=== PATIENT | female | born 1995 | race Caucasian/White ===

== ENCOUNTER 2022-02-20 09:14 | Emergency (ER) | payer OTHER, SELFPAY ==
--- NOTE | ~2022-02-20 | XR_ITS ---
EXAMINATION: XR foot LT min 3V DATE: 02/20/2022 09:34 INDICATION: Left foot pain. TECHNIQUE: 4 views of left foot were obtained. COMPARISON: None. FINDINGS: Bone alignment is normal. No fracture. There is a benign bone island in first distal phalan x. Joint spaces are normal. IMPRESSION: 1. No fracture. Reviewed, dictated and finalized at location A. IMPRESSION: 1. No fracture.
--- NOTE | 2022-02-20 09:21 | ED.EXTPRO ---
HPI - Extremity Problem General Chief complaint: Extremity Injury, Lower Stated complaint: Left Foot Pain Time Seen by Provider: 02/20/22 09:40 Source: patient Mode of arrival: ambulatory Limitations: no limitations History of Present Illness HPI Narrative: 26-year-old female presents concern for left foot pain. She reports 9 days ago she was jumping in a bounce house at her daughter's birthday republican and after that she noticed pain in her foot. She reports dorsal pain at the third and fourth meta tarsals. She denies swelling, bruising, redness, warmth. She denies open skin. She reports throbbing when she is at rest, worsening pain with weightbearing. Reports she has tried using elevation and ice with some relief. She reports pain worsens when she wiggles her toes or flexes her ankle MD Complaint: extremity pain Related Data Allergies Allergy/AdvReac Type Severity Reaction Status Date / Time Penicillins Allergy Rash Verified 02/20/22 09:31 Review of Systems Review of Systems: CONSTITUTIONAL: Denies malaise, chills, sweats, or fever. SKIN: Denies rash or itching. Denies bruising, redness, warm, swelling, open skin MUSCULOSKELETAL: Reports left foot pain NEUROLOGIC: Denies numbness, weakness All systems reviewed & are unremarkable except as noted in HPI and below PMFSH Comments At time of signature, agree with nursing past medical, surgical, social and family history. There is no relevant family history pertinent to the presenting complaint Exam Narrative: GENERAL: Well-appearing, well-nourished, and in no acute distress. HEAD: Normocephalic, atraumatic. EYES: PERRLA, sclera clear, and EOMI. No nystagmus. ENT: Nares clear, turbinates pink, no rhinorrhea or epistaxis. Mucous membranes moist. TM pearly limon with sharp light reflex bilaterally; no tragal tenderness. Oropharynx without erythema or lesions. Tonsils not enlarged and without exudate. NECK: Supple. No lymphadenopathy. No jugular venous distension, thyromegaly, or carotid bruits. Carotids were easily palpable bilaterally. CHEST: No respiratory distress. Clear to auscultation. No bony deformities, no asymmetry. Speaks in full sentences. HEART: Regular rate and rhythm. No murmur heard. Normal peripheral pulses. ABDOMEN: Soft, nontender, nondistended, normal active bowel sounds, no palpable masses. EXTREMITIES: Normal range of motion. No edema. Normal strength and sensation. SKIN: Warm, dry, no visible rash. NEURO: Alert and oriented x3. No focal deficits. Cranial nerves II through XII grossly intact PSYCH: Normal mood and affect Course Course Emergency Course: Patient is aware of diagnosis, understands and agrees to treatment plan. Anticipatory guidance given. Patient agrees to follow-up as directed and is aware of reasons to seek care at the emergency department. Portions of this record may have been created with voice recognition software Level of Care: Express Care Visit Vital Signs Vital signs: Reviewed. MDM - Extremity (Nontraumatic) MDM Narrative Medical decision making narrative: Patients injury and pain is consistent with musculoskeletal etiology. No signs of neurological or vascular compromise on exam. Compartments and tissues are soft without signs of compartment syndrome. Pain is felt appropriate for further evaluation on an outpatient basis. Imaging Data My impression: Images reviewed, interpreted by radiologist, agree, see report. Radiologist's impression: EXAMINATION: XR foot LT min 3V DATE: 02/20/2022 09:34 INDICATION: Left foot pain. TECHNIQUE: 4 views of left foot were obtained. COMPARISON: None. FINDINGS: Bone alignment is normal. No fracture. There is a benign bone island in first distal phalanx. Joint spaces are normal. IMPRESSION: 1. No fracture. Critical Care Time Critical Care Time Critical Care Time: No Discharge Plan Discharge Clinical Impression: Foot sprain Qualifiers: Encounter type: initial encounter Laterality: left
[2022-02-20 09:22] VITALS: BP 121/73; PULSE 85; RESP 16; TEMP 36.7; O2SAT 100
== END 2022-02-20 10:01 | disposition home or self-care (01) ==
PROVIDERS: Emergency Provider Nurse Practitioner
DX: S93.602A Unspecified sprain of left foot, initial encounter (principal); X50.3XXA Overexertion from repetitive movements, initial encounter
CPT/HCPCS: 73630; 99213; G0463

== ENCOUNTER 2022-09-26 11:05 | Emergency (ER) | payer OTHER, SELFPAY ==
[2022-09-26 11:07] VITALS: BP 113/71; PULSE 81; RESP 16; TEMP 36.5; O2SAT 100
--- NOTE | 2022-09-26 12:41 | ED.URI ---
HPI - URI/Sore Throat General Chief Complaint: Upper Respiratory Infection Stated Complaint: sore throat chest burning Time Seen by Provider: 09/26/22 12:40 Source: patient, RN notes reviewed and old records reviewed Mode of arrival: ambulatory Limitations: no limitations History of Present Illness HPI Narrative: 26-year-old presents to [facility] with complaints of chest burning, sore throat,fevers with appetite decreased and has been sleeping a lot for the past few days. She reports that she has not had COVID vaccination or flu shot. Patient reports that she did a Home COVID test yesterday which was negative. Patient has not taken any OTC medications for her symptoms. MD elicited complaint: fever, cough, sore throat and other (fatigue) Onset (ago): day(s) (2-3) Pain scale (0-10): 7 Treatments prior to arrival: none Related Data Allergies Allergy/AdvReac Type Severity Reaction Status Date / Time Penicillins Allergy Rash Verified 09/26/22 11:39 Review of Systems Review of Systems: CONSTITUTIONAL: Reports malaise, chills, sweats, or fever. EYES: Denies visual changes, redness, or discharge. ENT: Reports rhinorrhea, congestion, sinus pain, no otalgia positive for sore throat. CARDIOVASCULAR: Denies chest pain, palpitations, or edema. RESPIRATORY: Reports cough.? Denies dyspnea, states chest burning sensation GASTROINTESTINAL: Denies abdominal pain, nausea, vomiting, diarrhea, decreased appetite SKIN: Denies rash or itching. MUSCULOSKELETAL: Denies myalgia. NEUROLOGIC: Denies headache. All systems reviewed & are unremarkable except as noted in HPI and below PMFSH Past Medical History Medical History (Updated 09/29/22 @ 12:03 by Marina Arroyo NP) No pertinent past medical history Surgical History Surgical History (Updated 09/29/22 @ 12:04 by Marina Arroyo NP) No history of previous surgery Social History Social History (Updated 09/29/22 @ 12:02 by Marina Arroyo NP) Smoking status: Never smoker Alcohol intake: current Alcohol use details: social Substance use type: does not use Gender identity (if verbalized by the patient): Female Comments At time of signature, agree with nursing past medical, surgical, social and family history. There is no relevant family history pertinent to the presenting complaint Exam Narrative: GENERAL: Well-appearing, well-nourished, and in no acute distress. HEAD: Normocephalic EYES: PERRLA, conjunctivae clear ENT: Nares clear, turbinates edematous and erythematous, clear discharge. Mucous membranes moist. TM pearly limon with dull light reflex bilaterally; no tragal tenderness. Oropharynx erythematous without lesions. Tonsils red enlarged especially right tonsil and without exudate, no drooling, no hoarseness, no trismus, uvula midline. NECK: Supple. right lymphadenopathy CHEST: Clear to auscultation, breath sounds equal. No wheezing, rhonchi, rales, or stridor. No respiratory distress, speaks in full sentences. cough SAO2 100% on room air no tachypnea, respirations even and nonlabored HEART: Regular rate and rhythm. No murmur heard. SKIN: Warm, dry, no rash. NEURO: Alert and oriented x3. PSYCH: Normal mood and affect Course Course Emergency Course: Patient is aware of diagnosis, understands and agrees to treatment plan.? Anticipatory guidance given.? Patient agrees to follow-up as directed and is aware of reasons to seek care at the emergency department. Portions of this record may have been created with voice recognition software Level of Care: Express Care Visit Vital Signs Vital signs: Vital Signs Temperature 36.5 C 09/26/22 11:07 Pulse Rate 81 09/26/22 11:07 Respiratory Rate 16 09/26/22 11:07 Blood Pressure 113/71 09/26/22 11:07 Pulse Oximetry 100 09/26/22 11:07 Oxygen Delivery Room Air 09/26/22 11:07 Temperature 36.5 C 09/26/22 11:07 Pulse Rate 81 09/26/22 11:07 Respiratory Rate
== END 2022-09-26 13:02 | disposition home or self-care (01) ==
PROVIDERS: Emergency Provider Registered Nurse
DX: J03.90 Acute tonsillitis, unspecified (principal); R05.9 Cough, unspecified
CPT/HCPCS: 36416; 86308; 87804; 99213; G0463

== ENCOUNTER 2022-11-27 11:04 | Emergency (ER) | payer OTHER, SELFPAY ==
[2022-11-27 11:10] VITALS: BP 132/69; PULSE 87; RESP 16; TEMP 36.6; O2SAT 99
--- NOTE | 2022-11-27 11:23 | ED.GENADULT ---
HPI - General Adult General Chief complaint: Dizziness Stated complaint: Dizzness/7 Weeks Source: patient and RN notes reviewed History of Present Illness HPI narrative: 27 yo F presents to urgent care with complaints of dizziness x 2-3 days. Pt states she is newly and is approximately 7 weeks along. Pt states she saw her OB this past Thursday and was seen for palpitations and heart issues. Pt had blood work ordered and obtained and has an EKG ordered for next week. Pt reports inability hearing out of her left ear yesterday. Also reports a slight NESBITT but contributes this to her normal symptoms. States she feels like the room is spinning and is constant. Denies any otalgia, fevers, chills, SOB, congestion, runny nose, dysuria, or abdominal pain. Denies any falls. . Related Data Allergies Allergy/AdvReac Type Severity Reaction Status Date / Time Penicillins Allergy Rash Verified 09/26/22 11:39 Review of Systems Review of Systems: CONSTITUTIONAL: Denies fever, chills, or sweats. EYES: Denies visual changes, redness, or discharge. ENT: Denies otalgia and sore throat CARDIOVASCULAR: Denies chest pain but reports intermittent palpitations RESPIRATORY: Denies cough or dyspnea. GASTROINTESTINAL: Denies abdominal pain, nausea, vomiting, or diarrhea. GENITOURINARY: Denies dysuria or hematuria. SKIN: Denies rash or itching. MUSCULOSKELETAL: Denies back pain, joint pain, or myalgia. NEUROLOGIC: Reports headache, and dizziness. PMFSH Past Medical History Medical History (Updated 11/27/22 @ 11:44 by Rosaura Tai APRN) No pertinent past medical history Surgical History Surgical History (Updated 09/29/22 @ 12:04 by Marina Arroyo NP) No history of previous surgery Social History Social History (Updated 09/29/22 @ 12:02 by Marina Arroyo NP) Smoking status: Never smoker Alcohol intake: current Alcohol use details: social Substance use type: does not use Living arrangements: with family Gender identity (if verbalized by the patient): Female Comments At the time of my signature, I reviewed and agree with the nursing past medical, surgical, social, and family history. There is no relevant family history pertinent to the patient complaint. Exam Narrative: GENERAL: This is a well-nourished, well-developed patient, in no apparent distress. HEAD: normocephalic, atraumatic. EYES: PERRL. Sclera clear/white. Vision is grossly intact. EARS: External ears normal, auditory canals clear and without drainage, TMs normal without perforation. Hearing grossly intact. NOSE: External nose normal with no obvious nasal discharge, nares without redness, no rhinorrhea. THROAT: Mucous membranes moist, posterior pharynx clear. NECK: Neck supple, non-tender without lymphadenopathy, masses or thyromegaly. CARDIOVASCULAR: Regular rate and rhythm without murmurs, gallops, or rubs. RESPIRATORY: Clear to auscultation. Breath sounds equal bilaterally. No wheezes, rales, or rhonchi. GASTROINTESTINAL: Abdomen soft, non-tender, nondistended. Bowel sounds are active. No hepato-splenomegaly, or palpable masses. No guarding. SKIN: warm, intact with no suspicious lesions or rash, good texture and turgor. NEURO: awake, alert, and oriented to person, place and time. There were no obvious focal neurologic abnormalities. Course Course Level of Care: Express Care Visit Vital Signs Vital signs: Vital Signs Temperature 97.9 F 11/27/22 11:10 Pulse Rate 87 11/27/22 11:10 Respiratory Rate 16 11/27/22 11:10 Blood Pressure 132/69 11/27/22 11:10 Pulse Oximetry 99 11/27/22 11:10 Oxygen Delivery Room Air 11/27/22 11:10 Temperature 97.9 F 11/27/22 11:10 Pulse Rate 87 11/27/22 11:10 Respiratory Rate 16 11/27/22 11:10 Blood Pressure 132/69 11/27/22 11:10 Pulse Oximetry 99 11/27/22 11:10 Oxygen Delivery Room Air 11/27/22 11:10 Reviewed. Medical Decision Making Kaela
== END 2022-11-27 11:57 | disposition home or self-care (01) ==
PROVIDERS: Emergency Provider Nurse Practitioner Family
DX: O99.891 Other specified diseases and conditions complicating pregnancy (principal); R42 Dizziness and giddiness; O23.41 Unspecified infection of urinary tract in pregnancy, first trimester; N39.0 Urinary tract infection, site not specified; Z3A.01 Less than 8 weeks gestation of pregnancy
CPT/HCPCS: 81003; 87086; 99213; G0463

== ENCOUNTER 2023-03-18 16:14 | Emergency (ER) | payer OTHER, SELFPAY ==
[2023-03-18 16:27] VITALS: BP 130/78; PULSE 91; RESP 16; TEMP 36.4; O2SAT 100
--- NOTE | 2023-03-18 17:55 | ED.URI ---
HPI - URI/Sore Throat General Chief Complaint: Upper Respiratory Infection Stated Complaint: Runny Nose Time Seen by Provider: 03/18/23 17:55 Source: patient and RN notes reviewed Mode of arrival: ambulatory Limitations: no limitations History of Present Illness HPI Narrative: 27-year-old female presented for complaint of runny nose, onset this morning. She endorses her boyfriend tested positive for COVID yesterday. She is requesting COVID testing. She denies any associated cough, shortness breath, fatigue, nausea, vomiting, fevers or chills. Has not taken anything for symptoms pain. She is currently 22 weeks gestation and endorses normal movement today. MD elicited complaint: cough Related Data Home Medications Medication Instructions Recorded Confirmed ferrous sulfate 325 mg (65 mg 325 mg DIRECTED 03/18/23 03/18/23 iron) tablet Allergies Allergy/AdvReac Type Severity Reaction Status Date / Time Penicillins Allergy Rash Verified 09/26/22 11:39 Review of Systems Review of Systems: CONSTITUTIONAL: Denies malaise, chills, sweats, fever EYES: Denies visual changes, redness, or discharge ENT: Reports rhinorrhea, denies sinus pain, otalgia, sore throat CARDIOVASCULAR: Denies chest pain, palpitations, edema RESPIRATORY: Denies dyspnea GASTROINTESTINAL: Denies abdominal pain, nausea, vomiting, diarrhea SKIN: Denies rash or itching MUSCULOSKELETAL: deniesmyalgia NEUROLOGIC: Denies headache PMFSH Past Medical History Medical History No pertinent past medical history Surgical History Surgical History No history of previous surgery Social History Social History Smoking status: Never smoker Alcohol intake: current Alcohol use details: social Substance use type: does not use Living arrangements: with family Gender identity (if verbalized by the patient): Female Exam Narrative: GENERAL: well-appearing EYES: PERRLA, conjunctivae clear ENT: Mucous membranes moist. Mild nasal congestion. TM pearly limon with dull light reflex bilaterally; no tragal tenderness. NECK: Supple. No lymphadenopathy CHEST: Clear to auscultation, breath sounds equal. No wheezing, rhonchi, rales, or stridor. No respiratory distress, speaks in full sentences. HEART: Regular rate and rhythm. No murmur heard. SKIN: Warm, dry, no rash. NEURO: Alert and oriented x3. PSYCH: Normal mood and affect Course Course Emergency Course: Patient is aware of diagnosis, understands and agrees to treatment plan. Anticipatory guidance given. Patient agrees to follow-up as directed and is aware of reasons to seek care at the emergency department. Portions of this record may have been created with voice recognition software Level of Care: Express Care Visit Vital Signs Vital signs: Vital Signs Temperature 97.6 F 03/18/23 16:27 Pulse Rate 91 03/18/23 16:27 Respiratory Rate 16 03/18/23 16:27 Blood Pressure 130/78 03/18/23 16:27 Pulse Oximetry 100 03/18/23 16:27 Oxygen Delivery Room Air 03/18/23 16:27 Temperature 97.6 F 03/18/23 16:27 Pulse Rate 91 03/18/23 16:27 Respiratory Rate 16 03/18/23 16:27 Blood Pressure 130/78 03/18/23 16:27 Pulse Oximetry 100 03/18/23 16:27 Oxygen Delivery Room Air 03/18/23 16:27 reviewed MDM - URI/Sore Throat MDM Narrative Medical decision making narrative: Result negative COVID test reviewed with patient. Discussed physical exam findings. Advised supportive measures and signs/symptoms to go to the ER. Pt is appropriate for outpt treatment and f/u. Differential Diagnosis Differential diagnosis: Likely upper respiratory infection, sinusitis and viral infection Discharge Plan Discharge Clinical Impression: Viral infection Patient Disposition: Home, Self-Ca
== END 2023-03-18 18:20 | disposition home or self-care (01) ==
PROVIDERS: Emergency Provider Nurse Practitioner Family
DX: B34.9 Viral infection, unspecified (principal); Z20.822 Contact with and (suspected) exposure to COVID-19
CPT/HCPCS: 87426; 99213; C9803; G0463

== ENCOUNTER 2023-07-14 10:24 | Emergency (ER) | payer OTHER, SELFPAY ==
--- NOTE | 2023-07-14 10:25 | ED.DENTAL ---
HPI - Dental/Oral General Chief complaint: Dental/Oral Stated complaint: tooth pain/swelling Source: patient and RN notes reviewed Mode of arrival: ambulatory Limitations: no limitations History of Present Illness HPI Narrative: Patient is a 27 year female who presents to the [facility] with complaints of left upper dental pain starting last night. Patient states that she broke a tooth years ago but has never gotten it pulled. Patient states that she is having constant aching and throbbing to the left upper tooth. There is no notable facial swelling. No notable abscess. She denies difficulty swallowing. She does not currently have a dentist. She denies recent fevers. Related Data Home Medications Medication Instructions Recorded Confirmed ferrous sulfate 325 mg (65 mg 325 mg DIRECTED 03/18/23 03/18/23 iron) tablet labetalol 200 mg tablet mg 07/14/23 Allergies Allergy/AdvReac Type Severity Reaction Status Date / Time Penicillins Allergy Rash Verified 09/26/22 11:39 Review of Systems Review of Systems: CONSTITUTIONAL: Denies fever, chills, or sweats. EYES: Denies visual changes, redness, or discharge. ENT: Denies otalgia and sore throat. Reports dental pain. CARDIOVASCULAR: Denies chest pain, palpitations, or edema. RESPIRATORY: Denies cough or dyspnea. GASTROINTESTINAL: Denies abdominal pain, nausea, vomiting, or diarrhea. GENITOURINARY: Denies dysuria or hematuria. SKIN: Denies rash or itching. MUSCULOSKELETAL: Denies back pain, joint pain, or myalgia. NEUROLOGIC: Denies headache, numbness, or weakness. Pertinent positives per HPI. [facility] Past Medical History Medical History No pertinent past medical history Surgical History Surgical History No history of previous surgery Social History Social History Smoking status: Never smoker Alcohol intake: current Alcohol use details: social Substance use type: does not use Living arrangements: with family Gender identity (if verbalized by the patient): Female Comments At the time of my signature, I reviewed and agree with the nursing past medical, surgical, social, and family history. There is no relevant family history pertinent to the patient complaint. Exam Narrative: GENERAL: This is a well-nourished, well-developed patient, in no apparent distress. HEAD: normocephalic, atraumatic. EYES: Sclera clear/white. Vision is grossly intact. EARS: External ears normal. Hearing grossly intact. NOSE: External nose normal with no obvious nasal discharge, nares without redness, no rhinorrhea. THROAT: Mucous membranes moist, posterior pharynx clear. MOUTH: Gingival swelling, dental tenderness, dental caries, abnormal dentition. No abscess. NECK: Neck supple, non-tender without lymphadenopathy, masses or thyromegaly. CARDIOVASCULAR: Regular rate and rhythm without murmurs, gallops, or rubs. RESPIRATORY: Clear to auscultation. Breath sounds equal bilaterally. No wheezes, rales, or rhonchi. GASTROINTESTINAL: Abdomen soft, non-tender, nondistended. Bowel sounds are active. No hepato-splenomegaly, or palpable masses. No guarding. SKIN: warm, intact with no suspicious lesions or rash, good texture and turgor. NEURO: awake, alert, and oriented to person, place and time. There were no obvious focal neurologic abnormalities. Course Course Level of Care: Express Care Visit Vital Signs Vital signs: Vital Signs Temperature 97.3 F L 07/14/23 10:33 Pulse Rate 93 07/14/23 10:33 Respiratory Rate 16 07/14/23 10:33 Blood Pressure 143/89 H 07/14/23 10:33 Pulse Oximetry 99 07/14/23 10:33 Oxygen Delivery Room Air 07/14/23 10:33 Temperature 97.3 F L 07/14/23 10:33 Pulse Rate 93 07/14/23 10:33 Respiratory Rate 16 07/14/23 10:33 Blood Pressure 143/89 H
[2023-07-14 10:33] VITALS: BP 143/89; PULSE 93; RESP 16; TEMP 36.3; O2SAT 99
== END 2023-07-14 10:41 | disposition home or self-care (01) ==
PROVIDERS: Emergency Provider Nurse Practitioner
DX: K02.9 Dental caries, unspecified (principal); I10 Essential (primary) hypertension
CPT/HCPCS: 99213; G0463

== ENCOUNTER 2023-08-23 10:27 | Emergency (ER) | payer OTHER, SELFPAY ==
[2023-08-23 10:31] VITALS: BP 144/67; PULSE 92; RESP 16; TEMP 36.3; O2SAT 99
[2023-08-23 10:40] VITALS: BP 144/67; PULSE 92; RESP 16; TEMP 36.3; O2SAT 99
--- NOTE | 2023-08-23 10:49 | ED.DENTAL ---
HPI - Dental/Oral General Chief complaint: Dental/Oral Stated complaint: Toothache/Facial Swelling Source: patient Mode of arrival: ambulatory History of Present Illness HPI Narrative: 27-year-old female presented for complaint of left facial swelling and left upper dental abscess. Onset 5 days. States she woke with left cheek swelling up to the left eye and tooth throbbing. Patient was treated for dental abscess of the same tooth about 6 weeks ago, at that time she did not complete the clindamycin as prescribed, so she took the left over tablets for the last 4 days. Reports significant improvement in the swelling. Denies pain to the tooth at this time. Endorses the tooth has been broken for many years. Taking Naprosyn as directed. Scheduled with dental school in October. Denies n/v/d/f/c. Complaint: tooth pain Related Data Home Medications Medication Instructions Recorded Confirmed hydroxyzine HCl 25 mg tablet 30 mg PO DAILY 08/23/23 08/23/23 naproxen 500 mg tablet 500 mg PO BID 08/23/23 08/23/23 Allergies Allergy/AdvReac Type Severity Reaction Status Date / Time Penicillins Allergy Rash Verified 08/23/23 10:33 Review of Systems Review of Systems: CONSTITUTIONAL: Denies body aches, fever, chills ENT: Denies rhinorrhea, congestion, sore throat, or otalgia. Reports dental pain CARDIOVASCULAR: Denies chest pain, palpitations RESPIRATORY: Denies cough or dyspnea. SKIN: Denies rash, itching, or wounds. MUSCULOSKELETAL: Denies myalgia. NEUROLOGIC: Denies headache, numbness, tingling, or weakness. PMFSH Past Medical History Medical History No pertinent past medical history Surgical History Surgical History No history of previous surgery Social History Social History Smoking status: Never smoker Alcohol intake: current Alcohol use details: social Substance use type: does not use Living arrangements: with family Gender identity (if verbalized by the patient): Female Comments At time of signature, I have reviewed and agree with nursing past medical, surgical, social and family history unless otherwise noted. Please see nursing chart for further information. There is no relevant family history pertinent to the presenting complaint Exam Narrative: GENERAL: Appears in mild pain; no acute distress. HEAD: Normocephalic, atraumatic. EYES: EOMI. No redness or drainage. Conjunctivae normal. ENT: Dental pain location of #11, tooth is broken, Moderate lateral gum swelling with abscess draining. Medial aspect of tooth with area of erythema. Minimal tenderness. Mild Left face swelling over the abscess site, no erythema. Mucous membranes pink and moist. TMs normal bilaterally. Throat normal. Uvula midline. No trismus. No soft palate swelling. NECK: Normal AROM. No lymphadenopathy. CHEST: No respiratory distress. Clear to auscultation. HEART: Regular rate and rhythm. No murmur appreciated. SKIN: Warm, dry, no rash. Normal skin turgor. NEURO: No focal deficits. Alert and oriented x3. Gait steady. Course Course Emergency Course: Patient is aware of diagnosis, understands and agrees to treatment plan. Anticipatory guidance given. Patient agrees to follow-up as directed and is aware of reasons to seek care at the emergency department. Portions of this record may have been created with voice recognition software Level of Care: Express Care Visit Vital Signs Vital signs: Vital Signs Temperature 97.3 F L 08/23/23 10:31 Pulse Rate 92 08/23/23 10:31 Respiratory Rate 16 08/23/23 10:31 Blood Pressure 144/67 H 08/23/23 10:31 Pulse Oximetry 99 08/23/23 10:31 Oxygen Delivery Room Air 08/23/23 10:31 Temperature 97.3 F L 08/23/23 10:40 Pulse Rate 92 08/23/23 10:40 Respiratory Rate 16 08/23/23 10:40 B
== END 2023-08-23 11:10 | disposition home or self-care (01) ==
PROVIDERS: Emergency Provider Nurse Practitioner Family
DX: K04.7 Periapical abscess without sinus (principal)
CPT/HCPCS: 99213; G0463

== ENCOUNTER 2024-04-07 13:48 | Emergency (ER) | payer OTHER, SELFPAY ==
[2024-04-07 13:55] VITALS: BP 167/71; PULSE 86; RESP 20; TEMP 36.8; O2SAT 100
--- NOTE | 2024-04-07 14:38 | ECG_ITS ---
Test Date: 2024-04-07 14:42:48 Measurements Intervals [place] Rate: 90 P: 26 [place]: 127 QRS: 29 QRSD: 94 T: 17 QT: 358 QTc: 438 Interpretive Statements SINUS RHYTHM WITH SINUS ARRHYTHMIA WITHIN NORMAL LIMITS No previous ECG available for comparison Electronically Signed On 04-08-2024 07:00:00 CDT by Michel Ennis M.D.
--- NOTE | 2024-04-07 14:54 | ED.GENADULT ---
HPI - General Adult General Chief complaint: Shortness of Breath/Dyspnea Stated complaint: Shortness of Breath/Anxiety Time Seen by Provider: 04/07/24 14:20 Source: patient, RN notes reviewed and old records reviewed Mode of arrival: ambulatory Limitations: no limitations History of Present Illness HPI narrative: 28 year old female who presents to express care with complaints of starting yesterday episodes of anxiety with shortness of breath. Patient reports that she was on her way to work yesterday and she became very anxious was short of breath and felt like her head was being squeezed. She states that turned around and went home and took hydroxyzine and went to bed. Today she was getting ready for work and started having severe anxiety and felt shortness of breath again so came to clinic, states she feels like she is having palpitations in her chest also. Patient reports that her OB doctor had ordered her the buspirone and hydroxyzine for her anxiety after having her last baby. Patient reports that she had problems with eclampsia was at [facility] and has had problems with anxiety since. She states that she is suppose to see counselor. Patient admits that she has not been taking any buspirone and had not take any hydroxyzine for 2 weeks prior to yesterday incident. Patient does not like the way medication makes her feel she reports. MD complaint: anxiety, shortness of breath and palpitation Onset (ago): day(s) (increased symptoms for past 2 days) Severity: moderate Treatments prior to arrival: none and other (took hydroxyzine last evening) Related Data Home Medications Medication Instructions Recorded Confirmed hydroxyzine pamoate 25 mg capsule 25 mg PO TID PRN Anxiety 04/07/24 04/07/24 Allergies Allergy/AdvReac Type Severity Reaction Status Date / Time Penicillins Allergy Rash Verified 08/23/23 10:33 Review of Systems Review of Systems: CONSTITUTIONAL: Denies fever, chills, or sweats. EYES: Denies visual changes, redness, or discharge. ENT: Denies rhinorrhea, congestion, sore throat, or otalgia. CARDIOVASCULAR: Denies chest pain, positive for palpitations, or edema. RESPIRATORY: Denies cough,reports she feels short of breath GASTROINTESTINAL: Denies abdominal pain, nausea, vomiting, or diarrhea. GENITOURINARY: Denies dysuria or hematuria. SKIN: Denies rash or itching. MUSCULOSKELETAL: Denies back pain, joint pain, or myalgia. NEUROLOGIC: Denies headache, numbness, or weakness. PSYCHIATRIC: Reports acute anxiety episodes. All systems reviewed & are unremarkable except as noted in HPI and below PMFSH Past Medical History Medical History Anxiety No pertinent past medical history Preeclampsia Surgical History Surgical History No history of previous surgery Family History Family History (Updated 04/08/24 @ 11:04 by Marina Arroyo NP) Mother Heart disease Social History Social History Smoking status: Never smoker Alcohol intake: current Alcohol use details: social Substance use type: does not use Living arrangements: with family Gender identity (if verbalized by the patient): Female Comments At time of signature, agree with nursing past medical, surgical, social and family history. There is no relevant family history pertinent to the presenting complaint Exam Narrative: GENERAL: Well-appearing, well-nourished, anxious HEAD: Normocephalic, atraumatic. EYES: PERRLA and EOMI. ENT: Nares clear, no rhinorrhea or epistaxis. Mucous membranes moist. NECK: Supple.no lymphadenopathy CHEST: Clear to auscultation. No respiratory distress, patient reports feeling of dyspnea at rest with SAO2 100% on room air, no tachypnea HEART: Regular rate and rhythm. No murmur heard. Normal peripheral pulses.reports feeling of palpitations ABDOM
[2024-04-07 15:50] VITALS: BP 144/84
== END 2024-04-07 15:50 | disposition short-term general hospital (02) ==
PROVIDERS: Emergency Provider Registered Nurse
DX: F41.9 Anxiety disorder, unspecified (principal); R06.00 Dyspnea, unspecified; R00.2 Palpitations
CPT/HCPCS: 93005; 99213; G0463

== ENCOUNTER 2024-10-28 16:42 | Emergency (ER) | payer OTHER, SELFPAY ==
[2024-10-28 16:49] VITALS: BP 144/82; PULSE 73; RESP 16; TEMP 36.4; O2SAT 100
--- NOTE | 2024-10-28 16:49 | ED.FEMALEGU ---
HPI - Female Genitourinary General Chief complaint: Urogenital-Female Stated complaint: poss uti Source: patient and RN notes reviewed Mode of arrival: ambulatory Limitations: no limitations History of Present Illness HPI Narrative: 29-year-old female presented for complaint urinary urgency and suprapubic pressure radiating to the low back. Onset 3 days. Feels she is not emptying her bladder. LMP 5 days ago. Denies concern for std or . denies dysuria hematuria, nausea, vomiting, abdominal pain, flank pain, constipation, diarrhea, fevers or chills. Related Data Allergies Allergy/AdvReac Type Severity Reaction Status Date / Time Penicillins Allergy Rash Verified 10/28/24 16:45 Review of Systems Review of Systems: CONSTITUTIONAL: Denies body aches, fever, chills, or sweats. CARDIOVASCULAR: Denies chest pain, palpitations, or edema. RESPIRATORY: Denies cough or dyspnea. GASTROINTESTINAL: Denies abdominal pain, nausea, vomiting, or diarrhea. GENITOURINARY: Reports frequency, urgency, denies dysuria, hematuria, flank pain SKIN: Denies rash MUSCULOSKELETAL: Denies back pain or myalgia. [facility] Past Medical History Medical History Anxiety Preeclampsia No pertinent past medical history Surgical History Surgical History No history of previous surgery Family History Family History Mother Heart disease Social History Social History Smoking status: Never smoker Alcohol intake: current Alcohol use details: social Substance use type: does not use Living arrangements: with family Gender identity (if verbalized by the patient): Female Comments At time of signature, I have reviewed and agree with nursing past medical, surgical, social and family history unless otherwise noted. Please see nursing chart for further information. There is no relevant family history pertinent to the presenting complaint Exam Narrative: GENERAL: Well-appearing ENT: Mucous membranes pink and moist. NECK: Normal AROM. Supple. CHEST: No respiratory distress. Clear to auscultation. HEART: Regular rate and rhythm. ABDOMEN: Soft, nontender, nondistended, normal active bowel sounds. No CVA tenderness SKIN: Warm, dry, no rash. NEURO: No focal deficits. Alert and oriented x3. Gait steady. PSYCH: Normal affect. Course Course Emergency Course: Patient is aware of diagnosis, understands and agrees to treatment plan. Anticipatory guidance given. Patient agrees to follow-up as directed and is aware of reasons to seek care at the emergency department. Portions of this record may have been created with voice recognition software Level of Care: Express Care Visit Vital Signs Vital signs: Vital Signs Temperature 97.5 F L 10/28/24 16:49 Pulse Rate 73 10/28/24 16:49 Respiratory Rate 16 10/28/24 16:49 Blood Pressure 144/82 H 10/28/24 16:49 Pulse Oximetry 100 10/28/24 16:49 Oxygen Delivery Room Air 10/28/24 16:49 Temperature 97.5 F L 10/28/24 16:49 Pulse Rate 73 10/28/24 16:49 Respiratory Rate 16 10/28/24 16:49 Blood Pressure 144/82 H 10/28/24 16:49 Pulse Oximetry 100 10/28/24 16:49 Oxygen Delivery Room Air 10/28/24 16:49 Reviewed MDM - Female Genitourinary MDM Narrative Medical decision making narrative: Discussed physical exam findings. Advised supportive measures and signs/symptoms to go to the ER. Pt is appropriate for outpt treatment and f/u. Differential Diagnosis Differential diagnosis: Likely urinary tract infection, bacterial vaginosis and cystitis Discharge Plan Discharge Clinical Impression: Urinary tract infection Patient Disposition: Home, Self-Care Condition: Stable Instructions: Antibiotic Form, Urinary Tract Infection in Women (ED) Additional Instructions: Take the antibiotic as prescribed The urine will be sent of for a culture to identify what type of bacteria is causing your infection. If the culture shows that the antibiotic will not get rid of your infection, you will be notified and a new antibiotic will be called in for you. Increase water intake you will need to follow up with your PCP, call to schedule an appointment. Go to the ER for any worsening symptoms or concerns Patient Language: [place]er Prescriptions: New nitrofurantoin monohyd/m-cryst [Macrobid] 100 mg capsule 100 mg PO Q12H 5 Days Qty: 10 0RF Rx Instructions: must administer with a meal/food Follow-up/Referrals: PHYSICIAN,MAGNETIC TAPE COMPOSER OPERATOR [Primary Care Provider] - Time of Disposition: 16:57
[2024-10-28 17:04] LABS: EDUAAPPEAR Clear; EDUABILI Negative (Negative); EDUABLOOD 1+ (Negative); EDUACOLOR1 Yellow; EDUAGLUCOSE Negative (Negative); EDUAKETONE Trace (Negative); EDUALEUKO 1+ (Negative); EDUANITRATE Negative (Negative); EDUAPROTEIN 1+ (Negative); EDUASPGRAVITY 1.025
== END 2024-10-28 17:00 | disposition home or self-care (01) ==
PROVIDERS: Emergency Provider Nurse Practitioner Family
DX: N39.0 Urinary tract infection, site not specified (principal)
CPT/HCPCS: 81003; 87086; 87186; 99213; G0463

== ENCOUNTER 2025-03-05 16:16 | Emergency (ER) | payer OTHER, SELFPAY ==
--- OUTSIDE RECORDS SUMMARY | 2025-03-05 16:19 | XMS_ITS | Clinical Summary ---
Author Organization [facility] Address [address] [place] [address] Phone Care Team Providers Care F[employer] Pen Nibs Inspector Name Role Phone Provider, None Primary Care Provider Unavailabl e Allergies Active Allergy Reactions Criticality Noted Date Comments Penicillins Rash 11/21/2017 Medications metoclopramide (REGLAN) 10 MG Tablet Take 1 Tablet by mouth 4 times daily as needed for Nausea - 1st line. 10 Tablet 12/16/2022 Active naproxen (NAPROSYN) 500 MG Tablet Take 1 Tablet by mouth 2 times daily (with meals). 30 Tablet 07/16/2023 Active traMADol (ULTRAM) 50 MG TabletIndicatio ns:Pain, dental Take 1-2 Tablets by mouth every 6 hours as needed for Moderate or more severe pain. 20 Tablet 07/16/2023 Active meclizine (ANTIVERT) 25 MG Tablet Take 1 Tablet by mouth 3 times daily as needed (Vertigo). 30 Tablet 07/13/2024 Active Active Problems Problem Noted Date Diagnosed Date Anemia during in third trimester 05/25 Family History Medical History Relation Name Comments Diabetes Father Diabetes Mother Heart Disease Mother Hypertension Mother Relation Name Status Comments Father Alive Mother Alive Social History Tobacco Use Types Packs/Day Years Used Date Smoking Tobacco: Never Smokeless Tobacco: Never Tobacco Cessation:Counseling Given: Not Answered Alcohol Use Standard Drinks/Week Comments No 0 (1 standard drink = 0.6 oz pur e alcohol) Comments Unknown Sex and Gender Information Value Date Recorded Sex Assigned at Not on file Legal Sex Female 9:28 PM CDT Gender Identity Not on file Sexual Orientation Not on file Last Filed Vital Signs Vital Sign Reading Time Taken Comments Blood Pressure 144/81 07/13/2024 9:00 PM CDT Pulse 69 07/13/2024 9:15 PM CDT Temperature 36.7 C (98.1 F) 07/13/2024 4:36 PM CDT Respiratory Rate 20 07/13/2024 9:15 PM CDT Oxygen Saturation 99% 07/13/2024 9:15 PM CDT Inhaled Oxygen Concentration - - Weight 111.2 kg (245 lb 2.4 oz) 07/13/2024 4:36 PM CDT Height 170.2 cm (5' 7 ) 07/13/2024 4:36 PM CDT Body Mass Index 38.4 07/13/2024 4:36 PM CDT Plan of Treatment Health Maintenance Due Date Last Done Comments Hepatitis C Virus (HCV) Screening 1996 Pap Smear 2017 Influenza Immunization (#1) 2024 09/15/2019 SARS-COV-2 Immunization ( season) 2024 Respiratory Syncytial Virus (RSV) Immunization (Adult) (1 - 1-dose 75+ series) 2071 Hepatitis B Immunization Completed 997, 1996, 1996 Human Papillomavirus (HPV) Immunization Discontinued 12/22/2012, 06/02/2012 Meningococcal Immunization (ACWY) Completed 12/22/2012, 06/02/2012 DTaP/Tdap/Td Immunization Discontinued 2022, 01/31/2020, 06/04/2017, Additional history exists TdaP Immunization Completed 05/11/2023, , 06/04/2017, Additional history exists Pneumococcal Immunization Combined Aged Out No longer eligible based on patient's age to complete this topic Rotavirus Immunization Aged Out No lo nger eligible based on patient's age to complete this topic Insurance [place] Care Teams F[employer] Pen Nibs Inspector Relationship Specialty Start Date End Date Provider, None [place] PCP - General 11/21/17
--- OUTSIDE RECORDS SUMMARY | 2025-03-05 16:20 | XMS_ITS | Data Portability ---
Author Organization [facility] Address [address] [facility] [place] [address] Care Team Providers Care Reading Professor Name Role Phone BRUCE GARNETT Orthopedic Mechanic Unavailable ALANNAH KAUR Primary Care Provider Assessment Encounter Date Assessment Date Assessment LastModified by Organization Details LastModified Time 10/09/2023 10/09/2023 Pt's case was discussed w/resident. Documentation was reviewed, and I agree w/resident's note. Dr. Torrez [email or web address] Not available 10/13/2023 10:20:54 08/16/2024 08/16/2024 This visit was performed by Phone only. The patient's name, , and home address were confirmed prior to initiation of phone encounter. Not available 08/16/2024 09:47:43 Plan of Treatment Reminders Order Date Submit Date Provider Last Modified By Organization Details Last Modified Time Details Appointments None recorde d. Lab iron + total iron-bi nding capacit y (TIBC), serum 2022 023 [facility], [address], [place], [address], 3 11:11:54 ferriti n, serum or plasma 2022 023 [facility], [address], [place], [address], 3 11:11:54 pregnan cy test, urine 2022 023 [facility] In-Office Order, Internal Use Only DO Not Attach Compendium DO Not Attach Compendium, Do Not Delete/merge, [id number] 3 16:08:48 Referral clinica l therapi st referra l 2023 024 león Nelson [facility], [address] [place] [address], Mirian B, [address], [place], [address], 4 17:31:46 Procedures None recorde d. Surgeries None recorde d. Imaging None recorde d. Medication Orders buspiro ne 7.[address] [facility] ([place] [place]Pharmacy #[id number], [address] [place], [address], 4 16:57:59 sertral ine 50 mg tablet 2023 024 [facility]/Pharmacy #[id number], [address] [place], [address], 4 11:51:48 hydroxy zine pamoate 25 mg capsule 2023 024 [email or web address]/Pharmacy #[id number], [address] [place], [address], 4 11:45:32 hydroxy zine HCl 25 mg tablet 2022 [id number] [address] [place], [address], 4 12:53:37 Depo-Pr overa 150 mg/mL intramu scular suspens ion 2022 023 [email or web address] Not available 12:15:49 Patient TargetsNo targets recorded. Patient Instructions Encounter Date Encounter Id Patient Instructions Last Modified By Organization Details Last Modified Time 09/14/2023 [id number] A healthy lifestyle: care instructions [email or web address] Not available 09/14/2023 16:02:28 I discussed the patient s presentation, findings, assessment and plan with the resident during or immediately after the time of service. I agree with the resident s findings, assessment, and plan as documented in the note above. Nika Moore MD. [facility] [email or web address] Not available 09/14/2023 16:03:30 10/09/2023 [id number] A healthy lifestyle: care instructions [email or web address] Not available 10/09/2023 14:44:30 03/07/2024 [id number] A healthy lifestyle: care instructions [email or web address] Not available 03/07/2024 12:58:02 anxiety disorder: care instructions [email or web address] Not available 03/07/2024 12:32:31 I was present in the office and available during the visit. I discussed the patient s presentation, findings, assessment and plan with the resident during or immediately after the time of service. I agree with the resident s findings, assessment, and plan as documented in the note above. Nika Moore MD. [facility] [email or web address] Not available 03/07/2024 12:45:41 07/18/2024 [id number] A healthy lifestyle: care instructions Not available 07/18/2024 16:57:57 I was present in the office and available during the visit. I discussed the patient s presentation, findings, assessment and plan with the resident during or immediately after the time of service. I agree with the resident s findings, assessment, and plan as documented in the note above. Nika Moore MD. [facility] Not available 07/18/2024 12:56:03 08/16/2024 [id number] A healthy lifestyle: care instructions Not available 08/16/2024 09:46:24 On the date of this encounter, I was immediately available to assist the resident/fellow in the care of the patient, and have reviewed and agree with the resident s findings and plan of care. MD Lida [email or web address] Not available 08/21/2024 20:24:25 Reason for Referral Clinical Therapist Referral for Generalized anxiety disorder Referring Physician: Viviana Hammond, Call Center Manager, Encounter Date: 03/07/2024 Results Created Date Observation Date Name Description Value Unit Range Abnormal Flag Note LastModifiedBy Organization Detail LastModifiedTime 09/14/20 23 09/14/2023 pregn lorena test, urine HCG negati ve Not Available In-Office Order Internal Use Only DO Not Attach Compendium DO Not Attach Compendium, Do Not Delete/merge, [id number] 09/14/2023 16:02:07 10/09/2010/10/2023 IRON AND TIBC iron bind.cap.(TI BC) 491 ug/dL 250-45 0 above high normal Not Available [facility] ([facility]) [address] [place], [address], 10/10/2023 11:11:54 10/09/2010/10/2023 IRON AND TIBC UIBC 448 ug/dL 131-42 5 above high normal Not Available [facility] ([facility]) [address] [place], [address], 10/10/2023 11:11:54 10/09/20 23 10/10/2023 IRON AND TIBC iron 43 ug/dL 27-159 Not Available [facility] ([facility]) [address] [place], [address], 10/10/2023 11:11:54 10/09/20 23 10/10/2023 IRON AND TIBC iron saturation 9 % 15-55 alert low Not Available [facility] ([facility]) [address] [place], [address], 10/10/2023 11:11:54 10/09/20 23 10/10/2023 NANCY TIN ferritin 7 NG/mL 15-150 below low normal Not Available [facility] ([facility]) [address] [place], [address], 10/10/2023 11:11:54 Result Notes None recorded. Problems Name Problem SNOMED Code Status Onset Date Resolution Date Notes Provider Name and Address Organization Details Recorded Time Pregnanc y 86948793 Completed 201811/24/2022 GLORIA [place], [place] - [facility] 3 14:51:28 Administ ration of influenz a vaccine Completed 2018 BEA [place], [place] [facility] 3 10:57:00 Overweig ht 751877690 Completed Total weight gain of 15-25 lbs mery guidry BEA [place], [place] [facility] 3 10:57:00 Herpes simplex 81671741 Completed Prophyla xis at 36 weeks. 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 [place] [facility] 3 14:51:23 Palpitat ions 92429322 Active 2022 BRUCE GARNETT MD Attn: Tiffanie blank,[address] [facility], [place], [address] [facility] 3 11:56:38 Vitamin D deficien cy 28258887 Active 2022 BRUCE GARNETT MD Attn: Tiffanie blank,[address] [place], [address] [facility] 3 16:53:09 Rubella non-immu ne 338801544 Active 2022 Selma Romeo LPN [place] [facility] 3 14:51:23 Anemia of pregnanc y 88375316 Active 2022 Sel[place] Rome[place] LPN [place] [facility] 3 14:51:23 Pregnanc y 73862029 Completed 202206/09/2023 Selma Ousmane, [employer] [facility] 3 14:51:28 Low back pain in pregnanc y 04407711432 06 Completed 202205/26/2023 BRUCE GARNETT MD Attn: Tiffanie blank,[address] [facility], [place], [address] [facility] 3 16:53:26 Low back pain in pregnanc y 27883832686 06 Completed 2022 Selma Romeo [place] [facility] 3 14:51:23 Chlamydi a trachoma tis infectio n in pregnanc y 03738567139 Completed 2022 Selma Romeo [place] [facility] 3 14:51:23 Chlamydi a trachoma tis infectio n in pregnanc y 59077356478 Active 2022 Selma Romeo [place] [facility] 3 14:51:23 Anemia of pregnanc y 95696614 Completed 2022 Selma Romeo [place] [facility] 3 14:51:23 Past pregnanc y history of pre-ecla mpsia 36005818861 9100 Completed 2022 Selma Romeo [place] [facility] 3 14:51:23 Glucose toleranc e test during pregnanc y - baby not yet delivere d outside referenc e range 025844161 Completed 2022 1h abnormal , 3h wnl Selma Romeo [employer] [facility] 3 14:51:24 Glucose toleranc e test during pregnanc y - baby not yet delivere d outside referenc e range 896830670 Active 2022 1h abnormal , 3h wnl Selma Romeo [place] [facility] 3 14:51:24 Rubella non-immu ne 524622571 Completed 2022 Selma Romeo [place] [facility] 3 14:51:23 Maternal obesity complica ting pregnanc y, childbir th and the [place] , antepart 38399572320 7 Completed 2022 Selma Romeo, [place] [facility] 3 14:51:24 Maternal obesity complica ting pregnanc y, childbir th and the [place] , [facility] 26778873670 7 Active 2022 Selma Ousmane, [place] [facility] 3 14:51:24 Pregnanc y-induce d hyperten kaci 09278292 Active 2022 Selma Ousmane, [place] [facility] 3 14:51:23 Pregnanc y-induce d hyperten kaci 89835302 Completed 2022 Selma Romeo, [place] [facility] 3 14:51:23 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 436456282 Active 2023 RENALDO RODRÍGUEZ DO Attn: Tiffanie blank,[address] [place], [address], [place] [facility] 4 09:46:20 Generali zed anxiety disorder 27341499 Active 2023 RENALDO RODRÍGUEZ DO Attn: Tiffanie blank,[address] [place], [address], [place] [facility] 4 09:46:16 Urinary tract infectio n in pregnanc y 126512444 Completed Laura Hassan [place] [facility] 6 14:52:22 Anemia 519254029 Completed 08/16/2024 RENALDO RODRÍGUEZ DO Attn: Tiffanie blank,[address] [place], [address], [place] [facility] 4 09:46:09 Anemia 604731385 Completed Laura Hassan [place] [facility] 6 14:52:22 Spotting per vagina in pregnanc y 541675251 Active BRUCE GARNETT MD Attn: Tiffanie blank,[address] [place], [address], [place] [facility] 3 16:53:31 Late entry into care 959693379 Completed Amber oliver [place] [facility] 6 15:30:25 Infectio n by Trichomo guy [id number] Completed 08/16/2024 RENALDO RODRÍGUEZ DO Attn: Accountin g,[address] [facility], [place], [address], [place] [facility] 4 09:46:04 Infectio n by Chantalomo guy [id number] Completed Amber oliver [place] [facility] 6 15:30:25 Chlamydi al infectio n 257610976 Completed 08/16/2024 RENALDO RODRÍGUEZ DO Attn: Tiffanie blank,[address] [place], [address], [place] [facility] 4 09:46:04 Chlamydi al infectio n 076426474 Completed Amber oliver [place] [facility] 6 15:30:25 Vaginal discharg e 251020312 Completed 08/16/2024 RENALDO RODRÍGUEZ DO Attn: Tiffanie blank,[address] [place], [address], [place] [facility] 4 09:46:04 Rash of genitali a 867126176 Completed 08/16/2024 RENALDO RODRÍGUEZ DO Attn: Tiffanie blank,[address] [place], [address], [place] [facility] 4 09:46:04 Rash of genitali a 932485146 Completed Amber oliver [place] [facility] 6 15:30:25 Postpart um depressi on 24635836 Completed 08/16/2024 RENALDO RODRÍGUEZ DO Attn: Sheritain g,[address] [place], [address], [place] [facility] 4 09:46:04 Amenorrh ea 48132816 Completed 08/16/2024 RENALDO RODRÍGUEZ DO Attn: Tiffanie blank,[address] [facility], [place], [address] [facility] 4 09:46:04 Urinary tract infectio n in pregnanc y 355148592 Completed 08/16/2024 RENALDO RODRÍGUEZ DO Attn: Tiffanie blank,[address] [facility], [place], [address] [facility] 4 09:46:04 Pregnanc y 29447895 Completed 201608/20/2018 Selma Romeo LPN [place] [facility] 3 14:51:28 Acute cystitis 68883598 Completed BEA [place] [facility] 8 14:03:13 Anemia 879166276 Completed BE[place] [facility] 8 14:03:13 Problem Notes None recorded. Procedures Surgical History Date Name Laterality Status Provider Name and Address Organization Details Recorded Time 10/13/2019 Date of Last Pap Smear completed Nuris Chavez [place] [facility] 11/08/2019 09:47:06 Imaging Results None recorded. Procedure Notes None recorded. Medical Equipment None Reported. Allergies Allergen ID Allergen Name Allergen Category Reaction Reaction Severity Criticality Documentation Date Start Date Code Code System Note Provider Name and Address Organization Details Recorded Time 65979 Product containin g penicilli n (product) medicatio n rash Not available Not available 10/25/2014 58878 8001 SNOMED Jett Blueles pe[place], [place] - [facility] 5 09:52:52 Medications Name Sig Start Date Stop Date Status Note LastModified by Organization Details LastModified Time nifedipine ER 30 mg tablet,exte nded release 24 hr TAKE 1 TABLET BY MOUTH EVERY DAY FOR 30 DAYS 06/17 completed Not Available Not Available Not Available labetalol 200 mg tablet PLEASE SEE ATTACHED FOR DETAILED DIRECTION S 06/17 completed Not Available Not Available Not Available clindamycin HCl 300 mg capsule TAKE 1 CAPSULE BY MOUTH EVERY 8 HOURS FOR 10 DAYS 10/09 completed Not Available Not Available Not Available azithromyci n 250 mg tablet TAKE 2 TABLETS BY MOUTH TODAY, THEN TAKE 1 TABLET DAILY FOR 4 DAYS 11/24 completed Not Available Not Available Not Available hydrocodone 5 mg-acetamin ophen 325 mg tablet 01/12 completed Not Available Not Available Not Available pyridoxine (vitamin B6) 25 mg tablet Take 1 tablet every 6-8 hours by oral route as needed. 2022 active Not Available Not Available Not Avai lable ondansetron HCl 4 mg tablet Take 1 tablet every 6 hours by oral route as needed. 11/08 completed Not Available Not Available Not Available terconazole 0.8 % vaginal cream Insert 1 applicato rful every day by vaginal route. 04/10 completed Not Available Not Available Not Available metronidazo le 500 mg tablet Take 1 tablet twice a day by oral route for 7 days. 03/27 completed Not Available Not Available Not Available nifedipine ER 30 mg tablet,exte nded release 06/17 completed Not Available Not Available Not Available acetaminoph en 300 mg-codeine 30 mg tablet 09/05 completed Not Available Not Available Not Available acyclovir 400 mg tablet Take 1 tablet twice a day by oral route. 11/24 completed Not Available Not Available Not Available ciprofloxac in 500 mg tablet active Not Available Not Available Not Available aspirin 81 mg tablet,jania yed release TAKE 1 TABLET BY MOUTH EVERY DAY 05/26 completed Not Available Not Available Not Available tramadol 50 mg tablet TAKE 1 TO 2 TABLETS BY MOUTH EVERY 6 HOURS NEEDED FOR MODERATE OR MORE SEVERE PAIN 08/07 completed Not Available Not Available Not Available acetaminoph en 500 mg tablet 08/07 completed Not Available Not Available Not Available ketorolac 10 mg tablet 09/05 completed Not Available Not Available Not Available Vitamin tablet Take 1 tablet every day by oral route. 01/12 completed Not Available Not Available Not Available Depo-Assistant Real Estate Manager a 150 mg/mL intramuscul ar suspension Inject 1 mL every 3 months by intramusc ular route. 03/07 completed Not Available Not Available Not Available meclizine 25 mg tablet 07/18 completed Not Available Not Available Not Available cephalexin 500 mg capsule TAKE 1 CAPSULE BY MOUTH EVERY 12 HOURS FOR 10 DAYS 04/09 completed Not Available Not Available Not Available ferrous sulfate 325 mg (65 mg iron) tablet Take 1 tablet every other day by oral route with meals. 03/07 completed Not Available Not Available Not Available promethazin e 25 mg tablet TAKE 1 TABLET BY MOUTH EVERY 4 TO 6 HOURS NEEDED FOR NAUSEA 11/24 completed Not Available Not Available Not Available docusate sodium 100 mg capsule Take 1 capsule twice a day by oral route as needed. 04/03 completed Not Available Not Available Not Available lidocaine HCl 2 % mucosal solution 10/09 completed Not Available Not Available Not Available buspirone 7.5 mg tablet Take 1 tablet twice a day by oral route for 30 days. active Not Available Not Available No t Available hydroxyzine HCl 25 mg tablet TAKE 1 TABLET BY MOUTH THREE TIMES A DAY NEEDED FOR 30 DAYS active Not Available Not Available No t Available ergocalcife rol (vitamin D2) 1,250 mcg (50,000 unit) capsule TAKE 1 CAPSULE EVERY WEEK BY ORAL ROUTE. 06/17 completed Not Available Not Available Not Available ibuprofen 600 mg tablet TAKE 1 TABLET BY MOUTH EVERY 6 HOURS NEEDED FOR PAIN 08/07 completed Not Available Not Available Not Available labetalol 300 mg tablet TAKE 2 TABLETS BY MOUTH 3 TIMES A DAY WITH 1 TABLET OF 200MG TABS FOR A TOTAL OF 800MG 3 TIME DAILY 10/09 completed Not Available Not Available Not Available polyethylen e glycol 3350 17 gram/dose oral powder 06/17 completed Not Available Not Available Not Available methylpredn isolone 4 mg tablets in a dose pack TAKE 6 TABLETS ON DAY 1 DIRECTED ON PACKAGE AND DECREASE BY 1 TAB EACH DAY FOR A TOTAL OF 6 DAYS 11/24 completed Not Available Not Available Not Available Terazol 7 0.4 % vaginal cream Insert 1 applicato rful every day by vaginal route at bedtime for 7 days. 01/12 completed Not Available Not Available Not Available ondansetron 4 mg disintegrat ing tablet PLACE 1 TABLET BY TRANSLING UAL ROUTE EVERY 6 TO 8 HOURS NEEDED 04/09 completed Not Available Not Available Not Available sertraline 50 mg tablet TAKE 1 TABLET BY MOUTH EVERY DAY FOR 30 DAYS 07/18 completed Not Available Not Available Not Available Unisom (doxylamine ) 25 mg tablet Take 0.5 tablets every 6-8 hours by oral route as needed. 2022 active Not Available Not Available Not Avai lable naproxen 500 mg tablet TAKE 1 TABLET BY MOUTH TWICE A DAY WITH MEALS 08/07 completed Not Available Not Available Not Available metoclopram ami 10 mg tablet TAKE 1 TABLET BY MOUTH 4 TIMES DAILY NEEDED FOR NAUSEA - 1ST LINE. 04/09 completed Not Available Not Available Not Available Ventolin HFA 90 mcg/actuati on aerosol inhaler active Not Available Not Available Not Available hydroxyzine pamoate 25 mg capsule Take 1 capsule 3 times a day by oral route as needed for 30 days. 07/18 completed Not Available Not Available Not Available Vitamin 27 mg iron-0.8 mg tablet Take 1 tablet every day by oral route. 11/24 completed Not Available Not Available Not Available azithromyci n 500 mg tablet TAKE 2 TABLETS BY MOUTH ONCE AFTER A MEAL 01/19 completed Not Available Not Available Not Available nitrofurant oin monohydrate /macrocryst als 100 mg capsule Take 1 capsule every 12 hours by oral route. 02/13 completed Not Available Not Available Not Available chlorhexidi ne gluconate 0.12 % mouthwash 03/24 completed Not Available Not Available Not Available Vol-Tab Rx 29 mg iron-1 mg tablet 01/12 completed Not Available Not Available Not Available Clindamycin Pediatric 75 mg/5 mL oral solution active Not Available Not Available Not Available Vitamins Plus Low Iron 27 mg iron-1 mg tablet Take 1 tablet every day by oral route. 06/17 completed Not Available Not Available Not Available Vitals Date Recorded Body height Body mass index (BMI) Body weight Heart rate Respiratory rate Body temperature Systolic blood pressure Diastolic blood pressure Provider Name and Address Organization Details Last Updated DateTime 3 170.18 cm 36.5 kg/m2 219456. 07 g 68 /min 18 /min 98.3 [degF] 132 mm[Hg] 80 mm[Hg] Sabrina Guerrero [place] [facility] 3 15:39:23 Date Recorded Body height Heart rate Body temperature Respiratory rate Oxygen saturation Oxygen saturation in Arterial blood by Pulse oximetry Body mass index (BMI) Body weight Systolic blood pressure Diastolic blood pressure Provider Name and Address Organization Details Last Updated DateTime 3 170.18 cm 73 /min 97.7 [degF] 16 /min 99 % 99 % 36.5 kg/m2 850226. 02 g 129 mm[Hg] 89 mm[Hg] Fabi Pruitt MA [facility] 3 14:06:06 Date Recorded Body height Body mass index (BMI) Body weight Body temperature Heart rate Respiratory rate Oxygen saturation Oxygen saturation in Arterial blood by Pulse oximetry Systolic blood pressure Diastolic blood pressure Provider Name and Address Organization Details Last Updated DateTime 4 170.18 cm 38.6 kg/m2 997467. 88 g 98.4 [degF] 92 /min 18 /min 99 % 99 % 128 mm[Hg] 88 mm[Hg] BYRON Moreira [facility] 4 12:19:27 Date Recorded Body height Body mass index (BMI) Body weight Body temperature Heart rate Respiratory rate Systolic blood pressure Diastolic blood pressure Provider Name and Address Organization Details Last Updated DateTime 4 170.18 cm 38.4 kg/m2 486523. 53 g 98.3 [degF] 90 /min 18 /min 130 mm[Hg] 80 mm[Hg] Sabrina Guerrero MA [facility] 4 11:44:55 Date Recorded Body height Provider Name an d Address Organization Details Last Updated DateTime 08/16/2024 170.18 cm Fabi Pruitt MA [facility] 08/16/20 24 09:24:51 Social History Question Answer Notes LastModified by Organizat ion Details LastModified Time Tobacco Smoking Status Never Smoker Amelia pereira, [facility] 12/17/2015 17:05:28 What Is Your Level Of Alcohol Consumption? None Information not available 01/15/2015 If You Are , What Was Your Level Of Alcohol Consumption Prior To ? None Information not available 01/15/2015 Is Blood Transfusion Acceptable In An Emergency? Yes Information not available 09/05/2019 What Is Your Level Of Caffeine Consumption? Moderate Information not available 11/24/2022 Live With Cats/exposure To Cat Litter No Information not available 01/15/2015 How Much Tobacco Do You Chew? None [email or web address] Information not available 01/17/2020 In The 14 Days Before Symptom Onset, Have You Had Close Contact With A Laboratory-confir med COVID-19 While That Case Was Ill? No Information not available 11/24/2022 In The 14 Days Before Symptom Onset, Have You Had Close Contact With A Person Who Is Under Investigation For COVID-19 While That Person Was Ill? No Information not available 11/24/2022 Have You Been To An Area Known To Be High Risk For COVID-19? No Information not available 11/24/2022 Are You Currently Employed? Yes Information not available 09/05/2019 What Type Of Diet Are You Following? REGULAR Information not available 09/05/2019 Do You Or Have You Ever Used E-cigarettes Or Vape? Never Used Electronic Cigarettes [email or web address] Information not available 10/13/2019 Education 11 Information no t available 09/05/2019 What Is Your Occupation? [employer] Information not available 11/24/2022 Have There Been Any Changes To Your Family Or Social Situation? No [email or web address] Information no t available 10/13/2019 Frequent Air Travel No Information not available 09/05/2019 Illicit Drugs Pre- Denies Information not available 09/05/2019 Live Alone Or With Others? With Others Information not available 01/15/2015 Marital Status Single [email or web address] Informatio n not available 09/05/2019 What Was The Date Of Your Most Recent Tobacco Screening? 08/16/2024 Information not available 08/16/2024 How Many Children Do You Have? 5 Information not available 11/24/2022 What Is Your Relationship Status? Single Information not available 10/25/2014 Do You Use Your Seat Belt Or Car Seat Routinely? Yes Information not available 12/22/2022 Seat Belts Used Routinely Yes Information not available 01/15/2015 Are You Sexually Active? Yes [email or web address] Information not available 10/25/2014 Do You Have Smoke And Carbon Monoxide Detectors In Your Home? Yes Information not available 01/15/2015 Are You Passively Exposed To Smoke? No Information no t available 01/15/2015 Do You Or Have You Ever Used Smokeless Tobacco? Never Used Smokeless Tobacco Information not available 10/13/2019 How Much Tobacco Do You Smoke? No [email or web address] Information not available 10/25/2014 Smoking Pre- No Information not available 09/05/2019 General Stress Level Low [email or web address] Information not available 10/13/2019 Do You Feel Stressed (tense, Restless, Nervous, Or Anxious, Or Unable To Sleep At Night)? [id number] Information not available 12/22/2022 Do You Use Any Illicit Or Recreational Drugs? No Information not available 11/24/2022 Do You Use Sunscreen Routinely? No [email or web address] Information not available 10/13/2019 Has Tobacco Cessation Counseling Been Provided? Yes Information not available 12/22/2022 On What Date Was Tobacco Cessation Counseling Provided? 08/16/2024 Information not available 08/16/2024 Do You Or Have You Ever Used Any Other Forms Of Tobacco Or Nicotine? No [email or web address] Information not available 01/19/2023 Sex: Female Functional Status Question Answer Note LastModified by Organization D etails LastModified Time What is your exercise level? None Information not available 09/05/2019 Mental Status None recorded. Family History Relationship Description Onset Age of this Age Resolved Age Notes LastModified by Organization Details LastModified Time Mother Hypertensive disorder [place] Not available 2018 08:46:17 Mother Diabetes mellitus [place] Not available 2018 08:46:25 Father Diabetes mellitus [place] Not available 2018 08:46:28 Notes:no new 06/17/23, 08/07, 10/09/23, 08/16/24 Medical History Condition Response Other N High Blood Pressure N Breast Cancer N Thyroid Problems N Kidney or Bladder Problems N Lung Disease N Blood Clots N Depression N GI Problems N Acne N Breast Problem N Eating Disorder N Anemia N Anesthesia Complications N Headaches/Migraines N Ovarian Cancer N Diabetes N Anxiety Disorder N Muscle, Joint, or Bone Problems N Blood Transfusions N Seizures/Epilepsy N Polyps N Infertility N Acid Reflux (GERD) N Cancer N Abuse/Domestic Violence N Asthma Y Endometriosis N High Cholesterol N Hepatitis N Liver Disease N Heart Disease N Bronchitis Y Pre-Eclampsia N Osteoporosis N Gynecological History Statement/Question Response Abnormal Pap N Flow Moderate Date of LMP 07/10/2024 On BCP's at Conception? N STIs/STDs Yes HPV Vaccine Y Duration of Flow (days) 7 Age at Menarche 13 Current Control Method None Age at First Child 16 Sexually Active? Y Menses Monthly Y Date of Last Pap Smear 10/13/2019 Sexual Problems? N LMP Approximate Obstetrics History GPAL:G 8 P 5 0 2 5 Type Value Multiple Births 0 Full Term 5 Induced 2 Spontaneous 0 Premature 0 Living 5 Ectopics 0 Total 8 Immunizations Vaccine Type Date Status Note Provider Nam e and Address Organization Details Recorded Time Tdap 7 completed Not Available [facility] 11/12/2019 02:48:31 Influenza, split virus, quadrivalent, preservative 9 completed Not Available [facility] 11/12/2019 02:38:46 Tdap 0 completed Nuris Chavez MA [facility], [place] - [place] 01/31/2020 11:10:28 Tdap 3 completed BRUCE GARNETT MD Attn: Accounting,[address] [place], [address], [facility] 05/11/2023 18:03:36 Past Encounters Encounter ID Performer Location Encounter Start Date Encounter Closed Date Diagnosis/Indication Diagnosis SNOMED-CT Code Diagnosis ICD10 Code Diagnosis Note [id number] MD Natasha Patricio ([place] [address]) [address] [place] [address] 10/25/2014 11:51:53 10/25/2014 14:50:08 Amenorrhea [id number] Etsephania Foster [facility] Natasha Perez ([facility]) [address] [place] [address] 11/15/2014 16:33:01 11/15/2014 18:12:24 [id number] MD Natasha Kunz ([place] [address]) [address] [place] [address] 12/12/2014 13:49:56 12/12/2014 14:22:54 [id number] MD Natasha Kunz ([facility] [address]) [address] [facility] [place] [address] 12/28/2014 09:39:31 12/28/2014 10:53:04 [id number] MD Natasha Kunz ([place] [address]) [address] [facility] [place] [address] 01/15/2015 13:57:55 01/16/2015 10:30:17 [id number] MD Natasha Patricio ([place] [address]) [address] [facility] [place] [address] 02/12/2015 14:33:17 02/12/2015 16:25:45 [id number] MD Natasha Patricio ([facility]) [address] [facility] [place] [address] 03/13/2015 13:51:42 03/15/2015 15:40:12 [id number] MD Natasha Patricio ([place] [address]) [address] [facility] [place] [address] 03/27/2015 15:42:23 03/27/2015 17:04:43 [id number] Urinary tr act infection in [id number] [facility] [id number] MD Natasha Patricio ([place] [address]) [address] [facility] [place] [address] 05/01/2015 11:40:27 05/01/2015 17:52:28 [id number] Urinary tr act infection in [id number] MD Natasha Patricio ([place] [address]) [address] [facility] [place] [address] 05/08/2015 14:57:38 05/08/2015 16:01:15 [id number] MD Natasha Patricio ([place] [address]) [address] [facility] [place] [address] 05/22/2015 10:54:34 05/22/2015 12:05:56 [id number] Estephania Foster [facility] Natasha Womenwing ([facility]) [address] [facility] [place] [address] 12/17/2015 16:46:11 12/18/2015 09:47:03 [id number] Z33.1 [id number] Estephania Foster [facility] Natasha Perez ([facility]) [address] [facility] [place] [address] 12/20/2015 09:19:15 12/20/2015 10:02:55 [id number] Z33.1 Gynecologi c examination 35901674 Z01.419 [id number] Estephania Foster [facility] Natasha Perez ([facility]) [address] [facility] [place] [address] 12/25/2015 16:08:17 12/25/2015 17:41:18 Normal 67624596 Z34.90 Infection by Trichomonas 82952708 A59.9 Chlamydial infection 105 678172 A74.9 [id number] Estephania Foster [facility] Natasha Perez ([facility]) [address] [facility] [place] [address] 01/23/2016 13:52:10 01/24/2016 09:58:50 Normal [id number] Z34.90 [id number] Estephania Foster [facility] Natasha Perez ([facility]) [address] [facility] [place] [address] 01/30/2016 16:40:43 01/30/2016 17:20:24 Normal 34346676 Z34.83 Chlamydial infection 105 325187 A74.9 Rash of genitalia 958485 002 R21 [id number] MD Natasha Pace ([facility]) [address] [facility] [place] [address] 03/25/2016 15:12:28 03/25/2016 16:49:34 Normal 31299025 Z34.83 Late entry into care 410921404 O09.33 [id number] MD Natasha Pace ([facility]) [address] [facility] [place] [address] 04/14/2016 15:14:50 04/15/2016 11:19:11 depression 14586839 O99.493 [id number] Estephania Foster [facility] Natasha Perez ([facility]) [address] [facility] [place] [address] 01/12/2017 15:46:03 01/13/2017 08:50:42 Normal [id number] Z34.83 Gynecologi c examination 98758662 Z01.050 [id number] Estephania Fosetr GEORGILILLIE Perez ([facility]) [address] [facility] [place] [address] 01/26/2017 16:01:00 01/27/2017 09:19:50 Normal 09411368 Z34.83 [id number] Estephania Foster [facility] Natasha Perez ([facility]) [address] [facility] [place] [address] 03/09/2017 11:57:34 03/09/2017 14:33:38 Routine care 550936916 Z34.92 High risk sexual behavior 637304258 Z72.51 [id number] [facility] Nat[facility] Perez ([facility]) [address] [facility] [place] [address] 03/24/2017 16:12:59 03/25/2017 11:49:44 Normal [id number] Z34.82 [id number] MD Natasha Hahn ([facility]) [address] [facility] [place] [address] 05/15/2017 15:04:45 05/15/2017 15:46:34 Routine care 080820133 Z34.83 size does not accord with dates 700090876 O36.93X4 Acute cyst itis in , antepartum 0076862659 04 O23.13 [id number] MD Natasha Hahn ([facility]) [address] [facility] [place] [address] 06/04/2017 10:43:36 06/05/2017 08:44:32 Routine care 302493627 Z34.83 [id number] MD Natasha Hahn ([facility]) [address] [facility] [place] [address] 06/16/2017 14:49:53 06/16/2017 16:57:16 Routine care 835937195 Z34.83 [id number] MD Natasha Hahn ([place] [address]) [address] [facility] [place] [address] 06/23/2017 15:52:11 06/23/2017 18:38:24 Routine care 595619060 Z34.83 [id number] MD Natasha Hahn ([place] [address]) [address] [facility] [place] [address] 06/30/2017 16:17:09 07/01/2017 09:25:33 Routine care 592517795 Z34.83 [id number] MD Natasha Hahn ([place] [address]) [address] [facility] [place] [address] 07/21/2017 14:10:39 07/21/2017 16:22:06 Depression screening 937644681 Z13.89 RTC in 4 weeks or visit [id number] [facility] SERVICE ATTENDANT) [address] [facility] [place] [address] 09/05/2019 08:17:34 09/06/2019 09:05:05 Missed period 26871814 N92.5 UPT positive. Pt.not taking PNVs yet. rx sent. Threatened miscarriage 35926433 O20.0 Should be able to see FHTs by now in a normal . US ordered. RTO one week for results and POC. [id number] MD Jennifer Coker (SLEEPING CAR SERVICE ATTENDANT) [address] [place] [address] 09/12/2019 08:46:21 09/13/2019 13:29:46 Threatened miscarriage 65643255 O20.0 Should be able to see FHTs by now in a normal . US ordered. RTO 3 days for results and POC. [id number] MD Jennifer Coker (SLEEPING CAR SERVICE ATTENDANT) [address] [place] [address] 09/15/2019 10:30:34 09/16/2019 12:19:06 Routine care 494009826 Z34.01 See ACOG form Nausea 467146315 R11.0 [id number] MD Jennifer Coker (SLEEPING CAR SERVICE ATTENDANT) [address] [place] [address] 10/13/2019 08:57:59 2019 09:48:15 Routine care 517985739 Z34.01 See ACOG form Anemia of 2734 2003 O99.019 Diagnosis d/w pt. Rx sent to pharmacy. Instructio lesli discussed. Candidal vulvovaginitis 56147286 B37.3 Diagnosis d/w pt. Rx sent to pharmacy. Instructio ns discussed. [id number] MD Becki Cokerhalto (SLEEPING CAR SERVICE ATTENDANT) [address] [place] [address] 11/08/2019 09:44:14 11/09/2019 09:15:30 Routine care 545234737 Z34.82 See ACOG form [id number] MD Becki Cokerhalto (SLEEPING CAR SERVICE ATTENDANT) [address] [place] [address] 11/22/2019 09:49:17 11/23/2019 09:14:42 Routine care 504233305 Z34.82 See ACOG form [id number] MD Becki Cokerhalto (SLEEPING CAR SERVICE ATTENDANT) [address] [place] [address] 12/20/2019 09:45:29 12/21/2019 09:39:47 Routine care 375615522 Z34.82 See ACOG form [id number] [facility] (SLEEPING CAR SERVICE ATTENDANT) [address] [place] [address] 01/17/2020 09:29:07 01/18/2020 09:57:10 Routine care 586993402 Z34.02 See ACOG form [id number] MD Becki Cokerhalto (SLEEPING CAR SERVICE ATTENDANT) [address] [place] [address] 01/31/2020 10:01:58 02/01/2020 07:49:30 Routine care 260532259 Z34.02 See ACOG form Acute urin robert tract infection 098266302 N39.0 [id number] MD eJnnifer Coker (SLEEPING CAR SERVICE ATTENDANT) [address] [place] [address] 02/14/2020 08:08:42 02/15/2020 09:07:12 Routine care 997404964 Z34.83 See ACOG form [id number] [facility] (SLEEPING CAR SERVICE ATTENDANT) [address] [place] [address] 02/28/2020 10:38:05 02/29/2020 13:34:50 Routine care 440608785 Z34.83 See ACOG form Vaginal discharge 287185 006 N89.8 culture sent [id number] Jana White MD [facility] (SLEEPING CAR SERVICE ATTENDANT) [address] [place] [address] 03/13/2020 10:42:05 03/14/2020 06:21:52 Routine care 032680519 Z34.83 See ACOG form Bacterial vaginosis 4197 48892 N76.0 Diagnosis d/w pt. Rx sent to pharmacy. Instructio ns discussed. Candidal vulvovaginitis 99558739 B37.3 Diagnosis d/w pt. Rx sent to pharmacy. Instructio ns discussed. [id number] [facility] (SLEEPING CAR SERVICE ATTENDANT) [address] [place] [address] 03/27/2020 10:58:32 03/28/2020 13:03:23 Routine care 370059471 Z34.83 See ACOG form [id number] Jana White MD [facility] (SLEEPING CAR SERVICE ATTENDANT) [address] [facility] [place] [address] 04/03/2020 11:23:33 04/04/2020 07:51:50 Routine care 458444278 Z34.83 See ACOG form Candidal vulvovaginitis 68151458 B37.3 Diagnosis d/w pt. Rx sent to pharmacy. Instructio ns discussed. 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 [id number] MD [facility] (SLEEPING CAR SERVICE ATTENDANT) [address] [facility] [place] [address] 04/10/2020 11:06:21 04/11/2020 05:58:27 Routine care 908611312 Z34.83 See ACOG form [id number] [facility] (SLEEPING CAR SERVICE ATTENDANT) [address] [place] [address] 04/17/2020 10:54:55 04/18/2020 06:03:24 Routine care 828272229 Z34.83 See ACOG form [id number] [facility] (SLEEPING CAR SERVICE ATTENDANT) [address] [place] [address] 11/24/2022 10:08:26 11/26/2022 15:33:02 Missed period 01841268 N92.5 - Positive test in office today test positive 212612926 Z32.01 - Recommende d vitamins - Pre-eclamp caitlyn prophylaxi s with baby aspirin: indicated at 12 weeks for history of pre-eclamp caitlyn - Ordered initial OB labs - Return to clinic in 4 weeks for initial OB visit Vomiting of 90 043104 O21.9 - Recommende d anne products and OTC doxylamine and vitamin B6 for nausea/vom iting- If no improvemen t, patient to call or send Patient Portal message for prescripti on anti-nause a medication s Palpitations 14329099 R0 0.2 - DDx: thyroid disease vs arrhythmia vs panic/anxi ety attack- Will check TSH and treat as indicated by results- Will obtain EKG to evaluate for baseline signs of arrhythmia - If persistent , will consider Holter monitor Past pregn lorena history of pre-eclampsia [id number] 91591 Z87.59 - History of induction for pre-eclamp caitlyn in 2019- Will obtain baseline PIH labs today- Will start pre-eclamp caitlyn prophylaxi s with aspirin 81 mg daily at 12 weeks [id number] MD Becki WEBSTERhalto (SLEEPING CAR SERVICE ATTENDANT) [address] [place] [address] 12/22/2022 10:07:00 12/24/2022 11:57:56 Vomiting of 35916102 O21.9 - Recommende d anne products and OTC doxylamine and vitamin B6 for nausea/vom iting- Resent OTC doxylamine and vitamin B6 to pharmacy- Did not tolerate Reglan; will use Zofran only as needed for breakthrou gh nausea Palpitations 36627257 R0 0.2 - DDx: arrhythmia vs panic/anxi ety attack- Normal TSH- Ordered EKG to evaluate for baseline signs of arrhythmia at initial visit; pending result- If persistent , will consider Holter monitor Past pregn lorena history of pre-eclampsia 1400838149 60669 Z87.59 - History of induction for pre-eclamp caitlyn in 2019- Normal baseline PIH labs- Will start pre-eclamp caitlyn prophylaxi s with aspirin 81 mg daily at 12 weeks Routine an tenatal care 026547018 Z34.81 27 y/o ; YEVGENIY 07/17/23 based on LMP c/w 9w USSupport person(s): Carmine RISK FACTORS / PERTINENT HISTORY- Pre-pregna ncy BMI: 36; recommende d 11-20 pound weight gain- Pre-eclamp caitlyn prophylaxi s: yes - indicated at 12 weeks for history of pre-eclamp caitlyn- History of hemorrhage - Chlamydia infection on initial OB labs (11/25/22) -- PEEWEE ordered 12/22/22- Rubella equivocal- Anemia LABS- Up to date on routine labs GENETIC TESTING- NIPT ordered 12/22- AFP test due at 15+ weeks IMAGING- Dating US: 9w0d on 12/16/22 DELIVERY PREFERENCE SDelivery plan: TBDPain management : TBDInfant feeding: Formula feeding; considerin g breastDesi res circumcisi on: TBD Anemia of 2733 2003 O99.019 - Hgb 10.9- Prescribed iron supplement ation but has not taken yet- Will obtain follow up labs to confirm adequate response to oral iron and rule out other causes of anemia Rubella non-immune 74617 4009 Z01.84 - Equivocal immunity- Recommend MMR vaccine after delivery Chlamydia trachomatis infection in 1635375291 101 O23.91 - Positive on initial OB labs on 11/24/22- S/p treatment; test of cure ordered today [id number] MD Jennifer WEBSTER (SLEEPING CAR SERVICE ATTENDANT) [address] [place] [address] 01/19/2023 11:41:15 01/20/2023 10:02:19 Routine care 368813301 Z34.82 27 y/o ; YEVGENIY 07/17/23 based on LMP c/w 9w USSupport person(s): Carmine RISK FACTORS / PERTINENT HISTORY- Pre-pregna ncy BMI: 36; recommende d 11-20 pound weight gain- Pre-eclamp caitlyn prophylaxi s: yes - indicated at 12 weeks for history of pre-eclamp caitlyn- History of pre-eclamp caitlyn - normal baseline PIH labs- History of hemorrhage - Chlamydia infection on initial OB labs (11/25/22), neg PEEWEE 12/22/22- Rubella equivocal- Anemia- Vitamin D deficiency LABS- Up to date on routine labs VACCINES- Advised on COVID and flu vaccinatio ns during initial OB visit- Tdap: due at 27+ weeks GENETIC TESTING- NIPT: negative- AFP test due at 15+ weeks IMAGING- Dating US: 9w0d on 12/16/22 (see [facility] visit note)- Anatomy US: ordered 01/19/23 to be performed between 18 and 22 weeks DELIVERY PREFERENCE S- Delivery plan: Anticipate ; TBD- Pain management : natural if possible- Infant feeding: Formula feeding; considerin g breast- Desires circumcisi on: yes Vomiting of 90 093031 O21.9 - Recommende d anne products and OTC doxylamine and vitamin B6 for nausea/vom iting- Did not tolerate Reglan; will use Zofran only as needed for breakthrou gh nausea Palpitations 59941525 R0 0.2 - DDx: arrhythmia vs panic/anxi ety attack- Normal TSH- Ordered EKG to evaluate for baseline signs of arrhythmia at initial visit; pending result- Resolved as of visit on 01/19/23 Past pregn lorena history of pre-eclampsia [id number] 09389 Z87.59 - History of induction for pre-eclamp caitlyn in 2019- Normal baseline PIH labs- Prescribed aspirin 81 mg daily for pre-eclamp caitlyn prophylaxi s Anemia of 4 2003 O99.012 - Hgb 10.9- Prescribed iron supplement ation but has not taken yet- Will obtain follow up labs to confirm adequate response to oral iron and rule out other causes of anemia Chlamydia trachomatis infection in 7995838364 101 O23.92 - Positive on initial OB labs on 11/24/22- S/p treatment; negative test of cure on 12/22/22- Needs repeat testing at 36 weeks Rubella non-immune 03760 4009 Z01.84 - Equivocal immunity- Recommend MMR vaccine after delivery [id number] MD Becki WEBSTERhalto (SLEEPING CAR SERVICE ATTENDANT) [address] [place] [address] 02/16/2023 11:00:56 02/19/2023 11:09:05 Routine care 965764640 Z34.82 27 y/o ; YEVGENIY 07/17/23 based on LMP c/w 9w USSupport person(s): Manuel'S A BOY! - True RISK FACTORS / PERTINENT HISTORY- Pre-pregna ncy BMI: 36; recommende d 11-20 pound weight gain- Pre-eclamp caitlyn prophylaxi s: yes - indicated at 12 weeks for history of pre-eclamp caitlyn- History of pre-eclamp caitlyn - normal baseline PIH labs- History of hemorrhage - Chlamydia infection on initial OB labs (11/25/22), neg PEEWEE 12/22/22- Rubella equivocal- Iron deficiency anemia- Vitamin D deficiency LABS- Up to date on routine labs VACCINES- Advised on COVID and flu vaccinatio ns during initial OB visit- Tdap: due at 27+ weeks GENETIC TESTING- NIPT: negative- AFP test: ordered 02/16/23 at 18w3d IMAGING- Dating US: 9w0d on 12/16/22 (see [facility] visit note)- Anatomy US: ordered 02/16/23 to be performed by 22 weeks DELIVERY PREFERENCE S- Delivery plan: Anticipate ; TBD- Pain management : natural if possible- feeding: Formula feeding; considerin g breast- Desires circumcisi on: yes Vomiting of 90 055390 O21.9 - Recommende d anne products and OTC doxylamine and vitamin B6 for nausea/vom iting- Did not tolerate Reglan; will use Zofran only as needed for breakthrou gh nausea Palpitations 64449905 R0 0.2 - DDx: arrhythmia vs panic/anxi ety attack- Normal TSH- Ordered EKG to evaluate for baseline signs of arrhythmia at initial visit; pending result- Resolved as of visit on 01/19/23 Past pregn lorena history of pre-eclampsia [id number] 57542 Z87.59 - History of induction for pre-eclamp caitlyn in 2019- Normal baseline PIH labs- Prescribed aspirin 81 mg daily for pre-eclamp caitlyn prophylaxi s Anemia of 2734 2003 O99.012 - Hgb 10.9- Prescribed iron supplement ation but has not taken yet- Will obtain follow up labs to confirm adequate response to oral iron and rule out other causes of anemia Chlamydia trachomatis infection in 8109943433 101 O23.92 - Positive on initial OB labs on 11/24/22- S/p treatment; negative test of cure on 12/22/22- Needs repeat testing at 36 weeks Rubella non-immune 35075 4009 Z01.84 - Equivocal immunity- Recommend MMR vaccine after delivery [id number] [facility] (SLEEPING CAR SERVICE ATTENDANT) [address] [place] [address] 03/16/2023 11:48:04 03/17/2023 14:30:03 Routine care 542136019 Z34.82 27 y/o ; YEVGENIY 07/17/23 based on LMP c/w 9w USSupport person(s): Manuel'S A BOY! - True RISK FACTORS / PERTINENT HISTORY- Pre-pregna ncy BMI: 36; recommende d 11-20 pound weight gain- Pre-eclamp caitlyn prophylaxi s: yes - indicated at 12 weeks for history of pre-eclamp caitlyn- History of pre-eclamp caitlyn - normal baseline PIH labs- History of hemorrhage - Chlamydia infection on initial OB labs (11/25/22), neg PEEWEE 12/22/22- Rubella equivocal- Iron deficiency anemia- Vitamin D deficiency LABS- Up to date on routine labs VACCINES- Advised on COVID and flu vaccinatio ns during initial OB visit- Tdap: due at 27+ weeks GENETIC TESTING- NIPT: negative- AFP test: negative IMAGING- Dating US: 9w0d on 12/16/22 ([facility])- Anatomy US: 02/28/23 -- EFW 51%ile; posterior fundal placenta w/o previa; cervical length 4.2 cm; normal anatomy with limited views of 4-chamber heart, nose, lips, and profile. Needs repeat imaging at around 32 weeks. DELIVERY PREFERENCE S- Delivery plan: Anticipate ; TBD- Pain management : natural if possible- feeding: Formula feeding; considerin g breast- Desires circumcisi on: yes Palpitations 56793142 R0 0.2 - DDx: arrhythmia vs panic/anxi ety attack- Normal TSH- Ordered EKG to evaluate for baseline signs of arrhythmia at initial visit; pending result- Resolved as of visit on 01/19/23 Past pregn lorena history of pre-eclampsia [id number] 07885 Z87.59 - History of induction for pre-eclamp caitlyn in 2019- Normal baseline PIH labs- Prescribed aspirin 81 mg daily for pre-eclamp caitlyn prophylaxi s Anemia of 2733 2003 O99.012 - Hgb 10.9 / Hct 34.0 on 11/24/22 -> 10.7 / 36.0 on 02/16/23- On iron supplement ation Chlamydia trachomatis infection in 9468768221 101 O23.92 - Positive on initial OB labs on 11/24/22- S/p treatment; negative test of cure on 12/22/22- Needs repeat testing at 36 weeks Rubella non-immune 64502 4009 Z01.84 - Equivocal immunity- Recommend MMR vaccine after delivery Increased frequency of urination 398825740 R35.0 - Will treat empiricall y for UTI given symptoms and abnormal dipstick results- f/u UA/M with reflex to culture Low back p ain in 6254373479 106 O26.899 - Recommende d Tylenol, support band, heating pad, and exercises- Provided work note for accommodat ions [id number] [facility] (SLEEPING CAR SERVICE ATTENDANT) [address] [place] [address] 04/09/2023 12:06:51 04/14/2023 09:24:36 Routine care 487623495 Z34.82 27 y/o ; YEVGENIY 07/17/23 based on LMP c/w 9w USSupport person(s): TeronIT'S A BOY! - True RISK FACTORS / PERTINENT HISTORY- Pre-pregna ncy BMI: 36; recommende d 11-20 pound weight gain- Pre-eclamp caitlyn prophylaxi s: indicated for history of pre-eclamp caitlyn- History of pre-eclamp caitlyn - normal baseline PIH labs- History of hemorrhage - Chlamydia infection on initial OB labs (11/25/22), neg PEEWEE 12/22/22- Rubella equivocal- Iron deficiency anemia- Vitamin D deficiency LABS- Due for 1h GTT, Hgb/Hct VACCINES- Advised on COVID and flu vaccinatio ns during initial OB visit- Tdap: due at 27+ weeks GENETIC TESTING- NIPT: negative- AFP test: negative IMAGING- Dating US: 9w0d on 12/16/22 (see [facility] visit note)- Anatomy US: 02/28/23 -- EFW 51%ile; posterior fundal placenta w/o previa; cervical length 4.2 cm; normal anatomy with limited views of 4-chamber heart, nose, lips, and profile. Needs repeat imaging at around 32 weeks. DELIVERY PREFERENCE S- Delivery plan: Anticipate ; TBD- Pain management : natural if possible- feeding: Formula feeding; considerin g breast- Desires circumcisi on: yes Past pregn lorena history of pre-eclampsia [id number] 49878 Z87.59 - History of induction for pre-eclamp caitlyn in 2019- Normal baseline PIH labs- Prescribed aspirin 81 mg daily for pre-eclamp caitlyn prophylaxi s; stated not taking at visit on 04/09/23 Anemia of 4 2003 O99.012 - Hgb 10.9 / Hct 34.0 on 11/24/22 -> 10.7 / 36.0 on 02/16/23- On iron supplement ation; not taking consistent ly as of visit on 04/09/23 Chlamydia trachomatis infection in [id number] 101 O23.92 - Positive on initial OB labs on 11/24/22- S/p treatment; negative test of cure on 12/22/22- Needs repeat testing at 36 weeks Rubella non-immune 32210 4009 Z01.84 - Equivocal immunity- Recommend MMR vaccine after delivery Low back p ain in [id number] 106 O26.899 - 03/16/23: Recommende d Tylenol, support band, heating pad, and exercises. Provided work note for accommodat ions.- 04/09/23: Persistent symptoms but not following recommenda tions at this time. Encouraged patient to use support band while at work. [id number] MD Jennifer WEBSTER (SLEEPING CAR SERVICE ATTENDANT) [address] [place] [address] 05/11/2023 12:02:38 05/12/2023 09:11:25 Routine care [id number] O09.893 27 y/o ; YEVGENIY 07/17/23 based on LMP c/w 9w USSupport person(s): [employer]! - True RISK FACTORS / PERTINENT HISTORY- Pre-pregna ncy BMI: 36; recommende d 11-20 pound weight gain- Pre-eclamp caitlyn prophylaxi s: indicated for history of pre-eclamp caitlyn- History of pre-eclamp caitlyn - normal baseline PIH labs- History of hemorrhage - Chlamydia infection on initial OB labs (11/25/22), neg PEEWEE 12/22/22- Rubella equivocal- Iron deficiency anemia- Vitamin D deficiency - Abnormal 1h GTT with normal 3h GTT LABS- Up to date VACCINES- Advised on COVID and flu vaccinatio ns during initial OB visit- Tdap: given 05/11/23 (30w3d) GENETIC TESTING- NIPT: negative- AFP test: negative IMAGING- Dating US: 9w0d on 12/16/22 (see [facility] visit note)- Anatomy US: 02/28/23 -- EFW 51%ile; posterior fundal placenta w/o previa; cervical length 4.2 cm; normal anatomy with limited views of 4-chamber heart, nose, lips, and profile. Needs repeat imaging at around 32 weeks.- Follow up US: to be performed at [facility] visit on 05/20/23 DELIVERY PREFERENCE S- Delivery plan: Anticipate ; TBD- Pain management : natural if possible- Infant feeding: Formula feeding; considerin g breast- Desires circumcisi on: yes Past pregn lorena history of pre-eclampsia [id number] 62631 Z87.59 - History of induction for pre-eclamp caitlyn in 2019- Normal baseline PIH labs- Prescribed aspirin 81 mg daily for pre-eclamp caitlyn prophylaxi s; stated not taking at visit on 04/09/23 but had started by visit on 04/29/23- 7/5/23: Ongoing hand and leg swelling and dizziness/ lightheade dness for past 2 weeks. BP wnl after sitting for awhile. PIH labs ordered. Referred to [facility] for further monitoring throughout . Anemia of 2733 2003 O99.013 - Hgb 10.9 / Hct 34.0 on 11/24/22 -> 10.7 / 36.0 on 02/16/23 -> 9.6 / 32.2 on 04/09/23 -> 9.1 / 30.9 on 05/06/23- On oral iron supplement ation. Referred for IV iron infusions on 05/04/23. Chlamydia trachomatis infection in [id number] 101 O23.93 - Positive on initial OB labs on 11/24/22. S/p treatment; negative test of cure on 12/22/22.- Needs repeat testing at 36 weeks Rubella non-immune 18430 4009 Z01.84 - Equivocal immunity- Recommend MMR vaccine after delivery Glucose to lerance test during - baby not yet delivered outside reference range 370411953 O99.810 - 1h GTT of 147; 3h GTT wnl Maternal o besity complicating , childbirth and the puerperium, antepartum 9306962067 07 O99.213 - BMI at initial OB visit 36- Recommende d weight gain during : 11-20 lbs- Given ACOG handout on obesity in with informatio n on healthy diet and physical activity during - Needs surveillan ce with BPP weekly starting at 37w0d [id number] MD Jennifer WEBSTER HC (SLEEPING CAR SERVICE ATTENDANT) [address] [place] [address] 04/29/2023 16:27:49 05/07/2023 10:01:15 Routine care 278674481 Z34.82 27 y/o ; YEVGENIY 07/17/23 based on LMP c/w 9w USSupport person(s): TerJaycob[employer] BOY! - True RISK FACTORS / PERTINENT HISTORY- Pre-pregna ncy BMI: 36; recommende d 11-20 pound weight gain- Pre-eclamp caitlyn prophylaxi s: indicated for history of pre-eclamp caitlyn- History of pre-eclamp caitlyn - normal baseline PIH labs- History of hemorrhage - Chlamydia infection on initial OB labs (11/25/22), neg PEEWEE 12/22/22- Rubella equivocal- Iron deficiency anemia- Vitamin D deficiency LABS- Ordered PIH labs today due to symptoms concerning for pre-eclamp caitlyn and initial BP in hypertensi ve range (resolved to normal after sitting for some time) VACCINES- Advised on COVID and flu vaccinatio ns during initial OB visit- Tdap: due at 27+ weeks GENETIC TESTING- NIPT: negative- AFP test: negative IMAGING- Dating US: 9w0d on 12/16/22 (see [facility] visit note)- Anatomy US: 02/28/23 -- EFW 51%ile; posterior fundal placenta w/o previa; cervical length 4.2 cm; normal anatomy with limited views of 4-chamber heart, nose, lips, and profile. Needs repeat imaging at around 32 weeks. DELIVERY PREFERENCE S- Delivery plan: Anticipate ; TBD- Pain management : natural if possible- Infant feeding: Formula feeding; considerin g breast- Desires circumcisi on: yes Past pregn lorena history of pre-eclampsia [id number] 46110 Z87.59 - History of induction for pre-eclamp caitlyn in 2019- Normal baseline PIH labs- Prescribed aspirin 81 mg daily for pre-eclamp caitlyn prophylaxi s; stated not taking at visit on 04/09/23 but had started by visit on 04/29/23- 04/29/23: Ongoing hand and leg swelling and dizziness/ lightheade dness for past 2 weeks. BP wnl after sitting for awhile. PIH labs ordered. Will send to [facility] for further monitoring throughout . Anemia of 2733 2003 O99.012 - Hgb 10.9 / Hct 34.0 on 11/24/22 -> 10.7 / 36.0 on 02/16/23 -> 9.6 / 32.2 on 04/09/23- On iron supplement ation; not taking consistent ly as of visit on 04/09/23- 04/29/23: f/u CBC from PIH labs. Refer for IV iron if Hgb not improved after taking iron supplement ation consistent ly since visit on 04/09/23. Chlamydia trachomatis infection in 6855424810 101 O23.92 - Positive on initial OB labs on 11/24/22. S/p treatment; negative test of cure on 12/22/22.- Needs repeat testing at 36 weeks Rubella non-immune 47738 4009 Z01.84 - Equivocal immunity- Recommend MMR vaccine after delivery Glucose to lerance test during - baby not yet delivered outside reference range 623809241 O99.810 - 1h GTT of 147; 3h GTT ordered 04/10/23 and patient notified via Patient Portal- Patient to return to clinic for 3h GTT [id number] MD Jennifer WEBSTER (SLEEPING CAR SERVICE ATTENDANT) [address] [place] [address] 05/26/2023 12:06:42 05/27/2023 10:24:13 Routine care 983595427 O09.893 27 y/o ; YEVGENIY 07/17/23 based on LMP c/w 9w USSupport person(s): [employer]! - True RISK FACTORS / PERTINENT HISTORY- Pre-pregna ncy BMI: 36; recommende d 11-20 pound weight gain- Pre-eclamp caitlyn prophylaxi s: indicated for history of pre-eclamp caitlyn- History of pre-eclamp caitlyn in previous ; gestationa l hypertensi on during current - History of hemorrhage - Chlamydia infection on initial OB labs (11/25/22), neg PEEWEE 12/22/22- Rubella equivocal- Iron deficiency anemia requiring IV iron- Vitamin D deficiency - Abnormal 1h GTT with normal 3h GTT- Vaginal spotting in 3rd trimester LABS- 3rd trimester HIV and RPR ordered 05/26/23 VACCINES- Advised on COVID and flu vaccinatio ns during initial OB visit- Tdap: given 05/11/23 (30w3d) GENETIC TESTING- NIPT: negative- AFP test: negative IMAGING- Dating US: 9w0d on 12/16/22 (see [facility] visit note)- Anatomy US: 02/28/23 -- EFW 51%ile; posterior fundal placenta w/o previa; cervical length 4.2 cm; normal anatomy with limited views of 4-chamber heart, nose, lips, and profile. Needs repeat imaging at around 32 weeks.- Follow up US with amniotic fluid volume (q4w per MFM): 05/20/23 -- normal interval growth and amniotic fluid levels; BPP 06/02- Twice weekly testing with MFM for gHTN without severe features DELIVERY PREFERENCE S- Delivery plan: Anticipate ; timing TBD per MFM recommenda tions- Pain management : natural if possible- feeding: Formula feeding; considerin g breast- Desires circumcisi on: yes Past pregn lorena history of pre-eclampsia [id number] 16183 Z87.59 - History of induction for pre-eclamp caitlyn in 2019- Normal baseline PIH labs- Prescribed aspirin 81 mg daily for pre-eclamp caitlyn prophylaxi s; stated not taking at visit on 04/09/23 but had started by visit on 04/29/23. Advised to stop aspirin by MFM due to ongoing vaginal spotting. Anemia of 2733 2003 O99.013 - Hgb 10.9 / Hct 34.0 on 11/24/22 -> 10.7 / 36.0 on 02/16/23 -> 9.6 / 32.2 on 04/09/23 -> 9.1 / 30.9 on 05/06/23- On oral iron supplement ation. Referred for IV iron infusions on 05/04/23. Chlamydia trachomatis infection in 9744675421 101 O23.93 - Positive on initial OB labs on 11/24/22. S/p treatment; negative test of cure on 12/22/22.- Needs repeat testing at 36 weeks Rubella non-immune 32766 4009 Z01.84 - Equivocal immunity- Recommend MMR vaccine after delivery Glucose to lerance test during - baby not yet delivered outside reference range 946930490 O99.810 - 1h GTT of 147; 3h GTT wnl Maternal o besity complicating , childbirth and the puerperium, antepartum 1239132124 07 O99.213 - BMI at initial OB visit 36- Recommende d weight gain during : 11-20 lbs- Given ACOG handout on obesity in with informatio n on healthy diet and physical activity during - induced hypertension 53102130 O13.9 - BPs elevated in 140s/90s at visit 05/26/23 as well as at home. Outside records from hematology office show BP in 140s/100s on 05/25/23. Prescribed nifedipine ER 30 mg daily on 05/26/23.- Per MFM note 05/20/23: patient has not been taking baby aspirin and was advised not to start due to ongoing vaginal spotting- Following with MFM. Recommendi ng twice weekly testing. Delivery recommenda tions pending BP control. Spotting p er vagina in 781046998 O26.859 - Ongoing about every other day in the 3rd trimester- Following with MFM with repeat US [id number] MD Natasha Low 14 IM [address] [facility] [place] [address] 06/17/2023 09:59:13 06/26/2023 14:53:28 care 754796711 Z39.0 Preeclamps ia with Severe features during recent . Takes labetalol and not nifedipine due to reaction causing hypotensio n during hospitaliz ation for . Measures BP at home and averaging <140/90 . No change in mood, no depression . Counselled to follow up in 2 weeks regarding BP and to continue labetalol during this time. Past pregn lorena history of pre-eclampsia 1340591070 13737 Z87.59 Refer to post care above. [id number] MD Natasha Ramirez 14 IM [address] [facility] [place] [address] 08/07/2023 09:20:45 08/12/2023 15:31:03 Panic attack 905872686 F41.0 Suspected more likely Panic attack vs FINESSE at this time and will treat with hydroxyzin e PRN and buspirone 7.5 mg BID. Counselled patient on medication . Patient will follow up in 6 weeks. Will follow up thyroid levels with repeat TSH. Iron deficiency 20296162 E61.1 Hx of AXEL with recent Hgb in ER noted to be 11.1 Will assess AXEL with iron panel. [id number] MD Natasha Ramirez 14 IM [address] [facility] [place] [address] 09/14/2023 15:27:57 09/16/2023 16:17:36 Contraception care management 940695377 Z30.9 Reviewed all forms of control with patient including risk factors and side effects. Counseled on STD transmissi on and prevention , condom use and prevention pt currently interested in depo shotpt was not with in the window therefore a urine test was obtained and it was negative Obesity 196140990 E66.9 [id number] MD Natasha Nova [address] [facility] [place] [address] 10/09/2023 13:52:11 10/14/2023 12:59:47 Iron deficiency anemia 79438701 D50.9 Patient has history of iron deficiency anemia and not currently on any medication . Will check iron panel labs today and will follow up results. AXEL can cause anxiety and suspect this may be playing a role for this patient. Anxiety 18800122 F41.9 Anxiety well controlled on hydroxyzin e at this time. Initially supposed to be on buspirone and was prescribed hydroxyzin e to bridge her until buspirone kicks in due to patient distress at time. Patient counselled that buspirone should be more efficaciou s but would still prefer to stay on hydroxyzin e as she reports it working well. Patient will follow up in 2 months. Obesity 049539870 E66.9 [id number] MD Natasha Ramirez [address] [facility] [place] [address] 03/07/2024 11:54:57 03/11/2024 13:29:16 Generalized anxiety disorder 04270810 F41.1 possible features of PTSD with recent trauma around childbirth and NICU staycurren t medication : hydroxyzin e 25mg daily scheduledG AD7- score 8Phq9- score 4---> anxiety still not well controlled , will start pt on sertraline 25mg for 1 week and increase to 50mg.will send referral to therapy , and use hydroxyzin e 25mg PRNpt to contact us in 2-3 weeks to let us know if there is any improvemen t in her anxiety with the change in medication . Obesity 937752658 E66.9 [id number] MD Natasha Ramirez [address] [facility] [place] [address] 07/18/2024 11:35:09 07/25/2024 09:09:48 Obesity 962248035 E66.8 Healthy lifestyle encouraged including regular exercise of at least 150min per week, diet rich in plant based foods and low in added sugars, processed carbohydra magnus, and high salt foods. Encouraged protein intake mostly with chicken and white fish and limited red meat. Generalize d anxiety disorder 99356073 F41.1 Recommend patient take 1/2 the hydroxyzin e dose to minimize fogginessC an also take as needed for anxietyWil l also start Buspar 7.5 mg bid (mother has had good success with Buspar)Marianne ne visit in 3-4 weeks [id number] Meghana Gonsales MD [place] [address] [facility] [address] [place] [address] 08/16/2024 09:23:41 08/24/2024 14:55:16 Generalized anxiety disorder 13082046 F41.1 Continue to take 1/2 the hydroxyzin e dose to minimize fogginessC ontinue Buspar 7.5 mg bidFollow up in 3 months Obesity 653536216 E66.09 Healthy lifestyle encouraged including regular exercise of at least 150min per week, diet rich in plant based foods and low in added sugars, processed carbohydra magnus, and high salt foods. Encouraged protein intake mostly with chicken and white fish and limited red meat. 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 Eat soft-foods Try relaxation techniques Do TMJ stretches and exercisesA void chewing gumAvoid clenching or tensing your jawApply moist heat to the areaRecomm end seeing dentist, has recurrent abscess Health Concerns Section Related Observation LastModified by Organization Detai ls LastModified Time None Recorded Concern Status LastModified by Organization Details LastModified Time None Recorded Advance Directives Directive None Recorded Payers Encounter Date Sequence Insurance Name Policy Number Policy Landaverde Covered Member ID Landaverde Member ID Guarantor Name 09/14/2023 1 [facility] (MEDICAID HMO) [id number] Charlene Hudson [id number] Charlene Hudson 10/09/2023 1 [facility] (MEDICAID HMO) [id number] Charlene Hudson [id number] Charlene Butterfieldesty 03/07/2024 1 [facility] (MEDICAID HMO) [id number] 0003 Charlene Butterfieldesty [id number] Charlene Butterfieldesty 07/18/2024 1 [facility] (MEDICAID HMO) [id number] 0003 Charlene Hudson [id number] Charlene Hudson 08/16/2024 1 [facility] (MEDICAID HMO) [id number] 0003 Charlene Hudson [id number] Charlene Hudson Notes Date Note Type Note Provider Name and Address Organization Details Recorded Time 09/14/2023 text/html 27 y/o F here fo r a depot shot.No complains with current shot, this would be her second one.She is not with in window. Last shot received was 06/06.LMP- unsure of the date, reports that she has been spottingPt refused flu shotReports has a follow up with PCP dr. Kaur in a few week where she would address everything else Nae Moore MD Attn: Accounting,[address] [facility], [place], [address], [facility] 09/14/2023 16:54:09 10/09/2023 text/html Charlene Rivero is a 27 yo F with history of iron deficiency anemiapresenting for follow up of anxiety. She states initially feeling better with hydroxyzine and so stopped but thats when she had a bad episode at work and decided to start taking them again.Overall she states it is helpful and would like a refill. Denies any side affects. Buspirone started last time, and patient was told by mom that it doesn't work. 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 and never had antidepressants. Hx of AXEL, and was on iron pills. (filin stones). 1 hx of iron transfusion in may while . FINESSE=9 last office visitand FINESSE 7- 12 today Denies any chest pain, SOB, abdominal pain, cough, lower extremity edema at this time. Eric Torrez MD Attn: Accounting,[address] [facility], [place], [address], [facility] 10/13/2023 10:21:14 03/07/2024 text/html 28 y/o F here fo r a follow up on anxiety AnxietyPatient reports that she was diagnosed with anxiety after the of her second child about 9 months ago. Patient reports current she had an traumatic delivery requiring to deliver at 3 1 4 weeks secondary to pressures, her baby required NICU stay and since then she has been having anxiety patient no history of depression. Currently on hydroxyzine 25 mg once a day. Patient reports that the hydroxyzine helps with her panic attacks by resetting her and patient making her sleepy. Patient reports she was prescribed buspar but she never started taking the medication.Pt reports that she feels as if she needs better control of her anxiety because she continue to have panic attacks that occur weekly and almost daily. Has been trying box breathing which has been helping.pt reports that she is open to starting a different medication to get better control on her anxiety.Denies any depression.Pt also reports that she is interested in talking to therapy. Nae Moore MD Attn: Accounting,[address] [facility], [place], [address], [facility] 03/09/2024 18:45:31 07/18/2024 text/html 28 yo F presents to clinic for ED follow upEpisode of Dizziness 2 weeks agoJust started her period so thought it was due to thatHad some palpitations and went to the ED. Told she had high blood pressure. She was described the dizziness primarily as a vertigo like feeling. The symptoms had pretty well resolved by time she arrived to the ED. Also complained of headache. Lab work came back with a normal CBC CMP troponin and a test. CT head revealed no acute findings. Patient was given a headache cocktail made up ketorolac, Decadron, and Benadryl. Given her a script for meclizine in case the vertigo returns.Was also having sinus issues in the last few days that could have been contributing Dizziness has since resolvedHas not taken the meclizine States her anxiety is really bad right now. Has not taken her hydroxyzine for anxiety in 3 months, was helping but just stopped taking it. Did feel like the 25mg was making her too foggy. She could not even get in the elevator today due to anxiety. Nae Moore MD Attn: Accounting,[address] [facility], [place], [address], [facility] 07/21/2024 11:12:30 08/16/2024 text/html 28 yo F presents to clinic for mood follow up She is doing much better with her anxiety after starting the buspar. Also having some jaw pain for past few months. Has recurrent dental abscess and has not seen a dentist in some time. Has not really tried anything for the symptoms. Meghana Gonsales MD Attn: Accounting,[address] [facility], [place], [address], [facility] 08/21/2024 20:24:29 OBGyn Episode Ob Episode Information Episode Created Date Number of Fetuses Patient Bloodtype Patient rh Status Prepregnancy Weight lbs Domestic Partner Domestic Partner Phone Father Name Special Education Superintendent Status 12/22/19 23 1 B Positive Carmine Cisneros at [facility] [place] CLOSED Fetus Data First Name Last Name Admitted to NICU Weight (g) Sex Living Outcome Pediatric Complications Fetus ID Race Codes Race Delivery Type true elija h true [id number] M true Prematur e [id number] 2058-03 Afric an Ameri can Vaginal Problems Problem Notes Problem Name Start Date End Date Resolution Snomed Code Not e Past history of pre-eclampsia 11/24/2022 990524541801664 -induced hypertension 05/26/2023 21499606 Maternal obesity complicating , childbirth and the puerperium, antepartum 05/11/2023 034672197460 Rubella non-immune 11/27/2022 860483040 Glucose tolerance test during - baby not yet delivered outside reference range 04/10/2023 581317528 1h a bnormal, 3h wnl Chlamydia trachomatis infection in 03/16/2023 7535697775300 Low back pain in 03/16/2023 6580436898203 Anemia of 11/27/2022 85951681 Yevgeniy Calculation Initial Yevgeniy Date Initial Exam Date Initial Exam Provider Initial Ultrasound Date Last Menstrual Period Date Ultra Sound Weeks Gestation 07/17/2023 12/22/2022 [email or web address] 12/16/2022 10/10/2022 9 Eighteen To Twenty Week Yevgeniy Update Ultra Sound Date Fundal Height At Umbil Quickening Date Ultra Sound Latest Weeks Gestation Final Yevgeniy Confirmed By Final Yevgeniy Confirmed Date Final Yevgeniy Date Ultra Sound Latest Days Gestation 0 [email or web address] 12/22/2022 07/17/20 23 0 Pre- Flowsheet Flowsheet Date 12/22/2022 Coreas Score Blood Edema Fundus Height Fundus Units Glucose Ketones Leukocytes Nitrite Labor Signs Protein Cervic Dilation Cervic Effacement Cervic Station Type Weight in lbs Pre/Post Dialysis Refused With clothes 230.42183279667 BP Diastolic BP Location Tested BP Systolic BP Type 83 142 sitting 80 124 sitting Fetus Heart Rate Present Fetus Movement Comments Flowsheet Date 01/19/2023 Coreas Score Blood Edema Fundus Height Fundus Units Glucose Ketones Leukocytes Nitrite Labor Signs Protein Cervic Dilation Cervic Effacement Cervic Station none Type Weight in lbs Pre/Post Dialysis Refused With clothes 229.748295250826 BP Diastolic BP Location Tested BP Systolic BP Type 78 127 sitting Fetus Heart Rate Present A 150 Present Fetus Movement A Yes Comments Fundus not palpable. Flowsheet Date 02/16/2023 Coreas Score Blood Edema Fundus Height Fundus Units Glucose Ketones Leukocytes Nitrite Labor Signs Protein Cervic Dilation Cervic Effacement Cervic Station none 18 cm Type Weight in lbs Pre/Post Dialysis Refused With clothes 230.86237096280 BP Diastolic BP Location Tested BP Systolic BP Type 78 117 sitting Fetus Heart Rate Present A 145 Present Fetus Movement A Yes Comments Flowsheet Date 03/16/2023 Coreas Score Blood Edema Fundus Height Fundus Units Glucose Ketones Leukocytes Nitrite Labor Signs Protein Cervic Dilation Cervic Effacement Cervic Station 23 cm Other (see comments ) Type Weight in lbs Pre/Post Dialysis Refused With clothes 229.633772063480 BP Diastolic BP Location Tested BP Systolic BP Type 83 116 sitting Fetus Heart Rate Present A 145 Present Fetus Movement A Yes Comments Concern for UTI. Will treat empirically and f/u UCx results. Flowsheet Date 04/09/2023 Coreas Score Blood Edema Fundus Height Fundus Units Glucose Ketones Leukocytes Nitrite Labor Signs Protein Cervic Dilation Cervic Effacement Cervic Station none 25 cm Backpain Type Weight in lbs Pre/Post Dialysis Refused With clothes 229.541153537222 BP Diastolic BP Location Tested BP Systolic BP Type 74 106 sitting Fetus Heart Rate Present A 148 Absent Fetus Movement A Yes Comments Flowsheet Date 04/29/2023 Coreas Score Blood Edema Fundus Height Fundus Units Glucose Ketones Leukocytes Nitrite Labor Signs Protein Cervic Dilation Cervic Effacement Cervic Station none 28 cm Other (see comments ) Type Weight in lbs Pre/Post Dialysis Refused With clothes 234.375956745013 BP Diastolic BP Location Tested BP Systolic BP Type 96 145 sitting 84 122 sitting Fetus Heart Rate Present A 140 Present Fetus Movement A Yes Comments 2 weeks of hand and feet swe lling, nausea, and dizziness/lightheadedness. Ordered PIH labs. Flowsheet Date 05/11/2023 Coreas Score Blood Edema Fundus Height Fundus Units Glucose Ketones Leukocytes Nitrite Labor Signs Protein Cervic Dilation Cervic Effacement Cervic Station none 31 cm Type Weight in lbs Pre/Post Dialysis Refused With clothes 233.018498426535 BP Diastolic BP Location Tested BP Systolic BP Type 90 135 sitting 85 123 sitting Fetus Heart Rate Present A 140 Present Fetus Movement A Yes Comments Flowsheet Date 05/26/2023 Coreas Score Blood Edema Fundus Height Fundus Units Glucose Ketones Leukocytes Nitrite Labor Signs Protein Cervic Dilation Cervic Effacement Cervic Station none 32 cm Type Weight in lbs Pre/Post Dialysis Refused With clothes 236.154164843679 BP Diastolic BP Location Tested BP Systolic BP Type 100 141 sitting 89 143 sitting Fetus Heart Rate Present A 135 Present Fetus Movement A Yes Comments Meets criteria for gestation al HTN. Following with MFM. Starting nifedipine ER 30 mg daily. Menstrual History Last Menstrual Date Menses Monthly On Bcp Conception Prior Menses Frequency Hcg Plus Date Menarche Onset Age 1210/10/2022 true false 3 3 12 Genetic Screening And Infection History Question Response Note Patient's Age Will Be 35 Yea rs Or Older At Estimated Date of Delivery false Thalassemia (Andorran, Peruvian, Mediterranean, Or Background): MCV < 80 false Neural Tube Defect (Meningom yelocele, Spina Bifida, Or Anencephaly) false Congenital Heart Defect false Down Syndrome true Phil-Sachs (eg, Adventist, Cajun, Niuean-New Zealander) f alse Armando Disease false Sickle Cell Disease Or Trait () false Hemophilia Or Other Blood Disorders false Muscular Dystrophy false Cystic Fibrosis false Coleman's Chorea false Mental Retardation/Autism false Other Inherited Genetic Or Chromosomal Disorder false Maternal Metabolic Disorder (eg, Type 1 Diabetes , PKU) false Patient Or Baby's Father Had A Child With Defects Not Listed Above false Recurrent Loss, Or A Stillbirth false Medications (including Suppl ements, Vitamins, Herbs, OTC Drugs), Illicit/Recreational Drugs, Alcohol true See up dated med list Any Other Genetic History false Live With Someone With TB Or Exposed To TB false Patient Or Partner Has History Of Genital Herpes false Rash Or Viral Illness Since Last Menstrual Perio d false History Of STD, Gonorrhea, Chlamydia, HPV, Syphi lis true Chlamydia + in 10/2022 History of HIV false History of Hepatitis false Prior GBS-infected child false Plans and Education First Trimester Discussed Date Discussion Item Discussion Note Discuss ed By 12/22/2022 Anticipated course of care [email or web address] 12/22/2022 Alcohol [email or web address] 12/22/2022 Intimate partner violence dc 12/22/2022 Environmental/work hazards [place] [address] 12/22/2022 Screening for aneuploidy dc [facility] 12/22/2022 Nutrition counseling ; special diet; dietary precautions (mercury, listeriosis) [place] [address] 12/22/2022 Childbirth classes/hospital facilities [place] [address] 12/22/2022 HIV and other routine tests [id number] 12/22/2022 Risk factors identif ied by history [email or web address] 12/22/2022 Weight gain counseling [place] [address] 12/22/2022 Exercise [email or web address] 12/22/2022 Teratogens [email or web address] 12/22/2022 Use of any medicatio ns (including supplements, vitamins, herbs, or OTC drugs) [email or web address] 12/22/2022 [email or web address] 12/22/2022 Sexual activity [email or web address] 12/22/2022 Tobacco/smoking cess ation counseling (ask, advise, assess, assist, and arrange) [email or web address] 12/22/2022 Illicit/recreational drugs [place] [address] 12/22/2022 Dental care [email or web address] 12/22/2022 Travel [email or web address] 12/22/2022 Seat belt use [email or web address] 12/22/2022 Indications for ultrasonography [email or web address] 12/22/2022 Avoidance of saunas or hot tubs [email or web address] 12/22/2022 Toxoplasmosis precautions (cats/raw meat) [place] [address] Second Trimester Discussed Date Discussion Item Discussion Note Discuss ed By 05/11/2023 Selecting a care provider [email or web address] 01/19/2023 [facility]23 Signs and symptoms of labor 01/19/2023 Tobacco/smoking cess ation counseling (ask, advise, assess, assist, and arrange) N/A Third Trimester Discussed Date Discussion Item Discussion Note Discuss ed By 05/11/2023 Anesthesia plans [email or web address] 03/16/2023 Circumcision 05/11/2023 movement monitoring dc [email or web address] 03/16/2023 [email or web address] 05/11/2023 Labor signs 05/11/2023 Family medical leave or disability forms [email or web address] 05/01/2023 Signs and symptoms of preeclampsia [id number] Delivery Information Delivery Date Delivery Type Labor Anesthesia Weeks Gestation Incision Type Labor Labor Length Hrs Delivered By Post Complications Tubal Sterilization Discharge Date Comments 3 34 Discharge Information Feeding Method Contraceptive Method Maternal HG B and HCT Levels Bottle Ob Episode Information Episode Created Date Number of Fetuses Patient Bloodtype Patient rh Status Prepregnancy Weight lbs Domestic Partner Domestic Partner Phone Father Name Special Education Superintendent Status 09/05/20 19 1 B Positive carmine burns CLOSED Fetus Data First Name Last Name Admitted to NICU Weight (g) Sex Living Outcome Pediatric Complications Fetus ID Race Codes Race Delivery Type M true Full Term [id number] [id number] Black or Afric an Ameri can Problems Problem Notes Problem Name Start Date End Date Resolution Snomed Code Not e Herpes simplex [id number] Proph ylaxis at 36 weeks. Started 04/03/20 Overweight [id number] Total henry ght gain of 15-25 lbs discussed. Administration of influenza vaccine 09/15/2019 [id number] Yevgeniy Calculation Initial Yevgeniy Date Initial Exam Date Initial Exam Provider Initial Ultrasound Date Last Menstrual Period Date Ultra Sound Weeks Gestation 04/18/2020 09/05/201909/14/2019 07/13/2019 7 Eighteen To Twenty Week Yevgeniy Update Ultra Sound Date Fundal Height At Umbil Quickening Date Ultra Sound Latest Weeks Gestation Final Yevgeniy Confirmed By Final Yevgeniy Confirmed Date Final Yevgeniy Date Ultra Sound Latest Days Gestation 0 09/15/2019 04/26/20 20 0 Pre-jasvir Flowsheet Flowsheet Date 09/05/2019 Coreas Score Blood Edema Fundus Height Fundus Units Glucose Ketones Leukocytes Nitrite Labor Signs Protein Cervic Dilation Cervic Effacement Cervic Station Type Weight in lbs Pre/Post Dialysis Refused Weight 183.984768239364 BP Diastolic BP Location Tested BP Systolic BP Type 78 120 sitting Fetus Heart Rate Present Fetus Movement Comments Flowsheet Date 09/12/2019 Coreas Score Blood Edema Fundus Height Fundus Units Glucose Ketones Leukocytes Nitrite Labor Signs Protein Cervic Dilation Cervic Effacement Cervic Station Type Weight in lbs Pre/Post Dialysis Refused Weight 183.806515724116 BP Diastolic BP Location Tested BP Systolic BP Type 76 124 sitting Fetus Heart Rate Present Fetus Movement Comments Flowsheet Date 09/15/2019 Coreas Score Blood Edema Fundus Height Fundus Units Glucose Ketones Leukocytes Nitrite Labor Signs Protein Cervic Dilation Cervic Effacement Cervic Station Type Weight in lbs Pre/Post Dialysis Refused Weight 185.452574913271 BP Diastolic BP Location Tested BP Systolic BP Type 78 128 sitting Fetus Heart Rate Present Fetus Movement Comments US done yesterday confirms v iability, dwp. labs ordered. Pt. already taking PNVs. RTO 4 weeks for NOB visit. Flowsheet Date 10/13/2019 Coreas Score Blood Edema Fundus Height Fundus Units Glucose Ketones Leukocytes Nitrite Labor Signs Protein Cervic Dilation Cervic Effacement Cervic Station none neg Type Weight in lbs Pre/Post Dialysis Refused Weight 188.755194435195 BP Diastolic BP Location Tested BP Systolic BP Type 80 126 sitting Fetus Heart Rate Present A 140 Present Fetus Movement Comments labs show anemia, d wp. Rx iron and colace sent to pharmacy. Pt. with c/o white vaginal d/c and itching. + exam. Rx Terconazole sent. Instructions discussed. RTO 4 weeks. Quad screen next visit. Flowsheet Date 11/08/2019 Coreas Score Blood Edema Fundus Height Fundus Units Glucose Ketones Leukocytes Nitrite Labor Signs Protein Cervic Dilation Cervic Effacement Cervic Station none neg Type Weight in lbs Pre/Post Dialysis Refused Weight 186.788673526335 BP Diastolic BP Location Tested BP Systolic BP Type 76 128 sitting Fetus Heart Rate Present A 150 Present Fetus Movement Comments Quad screen discussed, order ed. RTO 2 weeks. Anatomy US next visit. Flowsheet Date 11/22/2019 Coreas Score Blood Edema Fundus Height Fundus Units Glucose Ketones Leukocytes Nitrite Labor Signs Protein Cervic Dilation Cervic Effacement Cervic Station none neg Type Weight in lbs Pre/Post Dialysis Refused Weight 188.296026209355 BP Diastolic BP Location Tested BP Systolic BP Type 74 120 sitting Fetus Heart Rate Present A 150 Present Fetus Movement A Yes Comments Quad screen negative, dwp. A natomy US ordered. RTO 4 weeks. Flowsheet Date 12/20/2019 Coreas Score Blood Edema Fundus Height Fundus Units Glucose Ketones Leukocytes Nitrite Labor Signs Protein Cervic Dilation Cervic Effacement Cervic Station none neg Type Weight in lbs Pre/Post Dialysis Refused Weight 191.028917582787 BP Diastolic BP Location Tested BP Systolic BP Type 72 110 sitting Fetus Heart Rate Present A 160 Present Fetus Movement A Yes Comments Anatomy US wnl, dwp. RTO 4 w eeks. Hydration discussed. Flowsheet Date 01/17/2020 Coreas Score Blood Edema Fundus Height Fundus Units Glucose Ketones Leukocytes Nitrite Labor Signs Protein Cervic Dilation Cervic Effacement Cervic Station Type Weight in lbs Pre/Post Dialysis Refused BP Diastolic BP Location Tested BP Systolic BP Type Fetus Heart Rate Present Fetus Movement A Yes Comments Telephone visit due to COVID -19 pandemic. Pt. reports good movement, no LOF, no VB. She is staying at home. She denies NESBITT, BV, RUQ pain. Anatomy US wnl, dwp. RTO 2 weeks. Third trimester labs next visit. Flowsheet Date 01/31/2020 Coreas Score Blood Edema Fundus Height Fundus Units Glucose Ketones Leukocytes Nitrite Labor Signs Protein Cervic Dilation Cervic Effacement Cervic Station 28 cm none neg Type Weight in lbs Pre/Post Dialysis Refused With clothes 199.254001907895 BP Diastolic BP Location Tested BP Systolic BP Type 82 116 sitting Fetus Heart Rate Present A 140 Present Fetus Movement A Yes Comments Third trimester labs today. Pt. with c/o suprapubic cramping. UA positive. Rx Macrobid sent. Instructions discussed. TdaP discussed, given. PT labor prec/kick counts discussed. Telephone visit in 2 weeks, dwp. Flowsheet Date 02/14/2020 Coreas Score Blood Edema Fundus Height Fundus Units Glucose Ketones Leukocytes Nitrite Labor Signs Protein Cervic Dilation Cervic Effacement Cervic Station Type Weight in lbs Pre/Post Dialysis Refused BP Diastolic BP Location Tested BP Systolic BP Type Fetus Heart Rate Present Fetus Movement A Yes Comments Telephone visit due to COVID -19 pandemic. Pt. doing well. +FM, no LOF, no VB. One hour GCT elevated. Three hour GTT wnl, dwp. Pt. was anemic. She is taking iron and colace. Hydration discussed. PT labor prec/kick counts discussed. S/Sx pre- eclampsia discussed. RTO 2 weeks, in office. Flowsheet Date 02/28/2020 Coreas Score Blood Edema Fundus Height Fundus Units Glucose Ketones Leukocytes Nitrite Labor Signs Protein Cervic Dilation Cervic Effacement Cervic Station 32 cm none trace Type Weight in lbs Pre/Post Dialysis Refused Weight 204.148249983371 BP Diastolic BP Location Tested BP Systolic BP Type 80 136 sitting Fetus Heart Rate Present A 140 Present Fetus Movement A Yes Comments Pt. with c/o vaginal d/c. Ap pears normal. Nuswab sent, dwp. PT labor prec/kick counts discussed. Hydration and jamari zelaya discussed. RTO 2 weeks in office, dwp.. Flowsheet Date 03/13/2020 Coreas Score Blood Edema Fundus Height Fundus Units Glucose Ketones Leukocytes Nitrite Labor Signs Protein Cervic Dilation Cervic Effacement Cervic Station 36 cm none neg Type Weight in lbs Pre/Post Dialysis Refused Weight 207.766229866978 BP Diastolic BP Location Tested BP Systolic BP Type 78 128 sitting Fetus Heart Rate Present A 140 Present Fetus Movement A Yes Comments Vaginal culture with BV and yeast. Rxs sent. Instructions discussed. PT labor prec/kick counts discussed. RTO 2 weeks. Flowsheet Date 03/27/2020 Coreas Score Blood Edema Fundus Height Fundus Units Glucose Ketones Leukocytes Nitrite Labor Signs Protein Cervic Dilation Cervic Effacement Cervic Station 37 cm none neg Type Weight in lbs Pre/Post Dialysis Refused Weight 209.868371070889 BP Diastolic BP Location Tested BP Systolic BP Type 80 116 sitting Fetus Heart Rate Present A 150 Present Fetus Movement A Yes Comments Pt. doing well. Labor prec/k ick counts discussed. RTO one week. GBS next visit. Flowsheet Date 04/03/2020 Coreas Score Blood Edema Fundus Height Fundus Units Glucose Ketones Leukocytes Nitrite Labor Signs Protein Cervic Dilation Cervic Effacement Cervic Station 38 cm none neg 1cm -4 Type Weight in lbs Pre/Post Dialysis Refused Weight 211.505701361663 BP Diastolic BP Location Tested BP Systolic BP Type 88 138 sitting Fetus Heart Rate Present A 135 Present Fetus Movement A Yes Comments GBS done today. GC/Chlam cx done. Yeast infection dwp. Rx terazole sent. Labor prec/kick counts discussed. RTO one week. Flowsheet Date 04/10/2020 Coreas Score Blood Edema Fundus Height Fundus Units Glucose Ketones Leukocytes Nitrite Labor Signs Protein Cervic Dilation Cervic Effacement Cervic Station 38 cm none neg 2cm 70% -3 Type Weight in lbs Pre/Post Dialysis Refused Weight 209.800941398123 BP Diastolic BP Location Tested BP Systolic BP Type 90 130 sitting Fetus Heart Rate Present A 140 Present Fetus Movement A Yes Comments GC/chlam cx neg, dwp. GBS po sitive, dwp. Labor prec/kick counts discussed. RTO one week. Flowsheet Date 04/17/2020 Coreas Score Blood Edema Fundus Height Fundus Units Glucose Ketones Leukocytes Nitrite Labor Signs Protein Cervic Dilation Cervic Effacement Cervic Station none neg 3cm Type Weight in lbs Pre/Post Dialysis Refused Weight 210.181093774397 BP Diastolic BP Location Tested BP Systolic BP Type 100 140 sitting 100 149 sitting Fetus Heart Rate Present A 140 Present Fetus Movement A Yes Comments BP elevated x 2 and pt. seei ng spots. Dx pre-eclampsia discussed. Pt. to L&D for IOL dwp. T/C to L&D with orders. Flowsheet Date 11/24/2022 Coreas Score Blood Edema Fundus Height Fundus Units Glucose Ketones Leukocytes Nitrite Labor Signs Protein Cervic Dilation Cervic Effacement Cervic Station Type Weight in lbs Pre/Post Dialysis Refused With clothes 33.2756881079980 BP Diastolic BP Location Tested BP Systolic BP Type 88 120 sitting Fetus Heart Rate Present Fetus Movement Comments Menstrual History Last Menstrual Date Menses Monthly On Bcp Conception Prior Menses Frequency Hcg Plus Date Menarche Onset Age 0907/13/2019 true 7 9 12 Genetic Screening And Infection History Question Response Note Patient's Age Will Be 35 Yea rs Or Older At Estimated Date of Delivery false Thalassemia (Andorran, Peruvian, Mediterranean, Or Background): MCV < 80 false Neural Tube Defect (Meningom yelocele, Spina Bifida, Or Anencephaly) false Congenital Heart Defect false Down Syndrome false Phil-Sachs (eg, Adventist, Cajun , Niuean-New Zealander) false Armando Disease false Sickle Cell Disease Or Trait () false Hemophilia Or Other Blood Disorders false Muscular Dystrophy false Cystic Fibrosis false Coleman's Chorea false Mental Retardation/Autism false Other Inherited Genetic Or C hromosomal Disorder false Maternal Metabolic Disorder (eg, Type 1 Diabetes, PKU) false Patient Or Baby's Father Had A Child With Defects Not Listed Above false Recurrent Loss, Or A Stillbirth true father has baby born early and Medications (including Suppl ements, Vitamins, Herbs, OTC Drugs), Illicit/Recreational Drugs, Alcohol false Any Other Genetic History false Live With Someone With TB Or Exposed To TB false Patient Or Partner Has Histo ry Of Genital Herpes false Rash Or Viral Illness Since Last Menstrual Period false History Of STD, Gonorrhea, C hlamydia, HPV, Syphilis false Other Infection History false History of HIV false History of Hepatitis false Prior GBS-infected child false Delivery Information Delivery Date Delivery Type Labor Anesthesia Weeks Gestation Incision Type Labor Labor Length Hrs Delivered By Post Complications Tubal Sterilization Discharge Date Comments 0 38.5 Jett Cuellar MD Discharge Information Feeding Method Contraceptive Method Maternal HG B and HCT Levels Ob Episode Information Episode Created Date Number of Fetuses Patient Bloodtype Patient rh Status Prepregnancy Weight lbs Domestic Partner Domestic Partner Phone Father Name Special Education Superintendent Status 09/05/20 19 1 CLOSED Fetus Data First Name Last Name Admitted to NICU Weight (g) Sex Living Outcome Pediatric Complications Fetus ID Race Codes Race Delivery Type , Induced [id number] Yevgeniy Calculation Initial Yevgeniy Date Initial Exam Date Initial Exam Provider Initial Ultrasound Date Last Menstrual Period Date Ultra Sound Weeks Gestation 0 Eighteen To Twenty Week Yevgeniy Update Ultra Sound Date Fundal Height At Umbil Quickening Date Ultra Sound Latest Weeks Gestation Final Yevgeniy Confirmed By Final Yevgeniy Confirmed Date Final Yevgeniy Date Ultra Sound Latest Days Gestation 0 0 Menstrual History Last Menstrual Date Menses Monthly On Bcp Conception Prior Menses Frequency Hcg Plus Date Menarche Onset Age Delivery Information Delivery Date Delivery Type Labor Anesthesia Weeks Gestation Incision Type Labor Labor Length Hrs Delivered By Post Complications Tubal Sterilization Discharge Date Comments 9 Discharge Information Feeding Method Contraceptive Method Maternal HG B and HCT Levels Ob Episode Information Episode Created Date Number of Fetuses Patient Bloodtype Patient rh Status Prepregnancy Weight lbs Domestic Partner Domestic Partner Phone Father Name Special Education Superintendent Status 09/05/20 19 1 CLOSED Fetus Data First Name Last Name Admitted to NICU Weight (g) Sex Living Outcome Pediatric Complications Fetus ID Race Codes Race Delivery Type , Induced [id number] Yevgeniy Calculation Initial Yevgeniy Date Initial Exam Date Initial Exam Provider Initial Ultrasound Date Last Menstrual Period Date Ultra Sound Weeks Gestation 0 Eighteen To Twenty Week Yevgeniy Update Ultra Sound Date Fundal Height At Umbil Quickening Date Ultra Sound Latest Weeks Gestation Final Yevgeniy Confirmed By Final Yevgeniy Confirmed Date Final Yevgeniy Date Ultra Sound Latest Days Gestation 0 0 Menstrual History Last Menstrual Date Menses Monthly On Bcp Conception Prior Menses Frequency Hcg Plus Date Menarche Onset Age Delivery Information Delivery Date Delivery Type Labor Anesthesia Weeks Gestation Incision Type Labor Labor Length Hrs Delivered By Post Complications Tubal Sterilization Discharge Date Comments 9 Discharge Information Feeding Method Contraceptive Method Maternal HG B and HCT Levels Ob Episode Information Episode Created Date Number of Fetuses Patient Bloodtype Patient rh Status Prepregnancy Weight lbs Domestic Partner Domestic Partner Phone Father Name Special Education Superintendent Status 10/25/20 14 1 CLOSED Fetus Data First Name Last Name Admitted to NICU Weight (g) Sex Living Outcome Pediatric Complications Fetus ID Race Codes Race Delivery Type 3401.94 F Full Term [id number] Vaginal Yevgeniy Calculation Initial Yevgeniy Date Initial Exam Date Initial Exam Provider Initial Ultrasound Date Last Menstrual Period Date Ultra Sound Weeks Gestation 0 Eighteen To Twenty Week Yevgeniy Update Ultra Sound Date Fundal Height At Umbil Quickening Date Ultra Sound Latest Weeks Gestation Final Yevgeniy Confirmed By Final Yevgeniy Confirmed Date Final Yevgeniy Date Ultra Sound Latest Days Gestation 0 0 Menstrual History Last Menstrual Date Menses Monthly On Bcp Conception Prior Menses Frequency Hcg Plus Date Menarche Onset Age Delivery Information Delivery Date Delivery Type Labor Anesthesia Weeks Gestation Incision Type Labor Labor Length Hrs Delivered By Post Complications Tubal Sterilization Discharge Date Comments 2 40 false Discharge Information Feeding Method Contraceptive Method Maternal HG B and HCT Levels Ob Episode Information Episode Created Date Number of Fetuses Patient Bloodtype Patient rh Status Prepregnancy Weight lbs Domestic Partner Domestic Partner Phone Father Name Special Education Superintendent Status 12/20/19 16 1 B Positive Baljeet Saldaña Desires [facility] delivery CLOSED Fetus Data First Name Last Name Admitted to NICU Weight (g) Sex Living Outcome Pediatric Complications Fetus ID Race Codes Race Delivery Type Rocaelibri ivette Wheel er false 2693.20 25 F true Full Term 16402 2054-5 Black or Afric an Ameri can Vaginal Problems Problem Notes Problem Name Start Date End Date Resolution Snomed Code Not e Infection by Trichomonas 10632 008 Chlamydial infection [id number] Late entry into care [id number] Rash of genitalia [id number] Yevgeniy Calculation Initial Yevgeniy Date Initial Exam Date Initial Exam Provider Initial Ultrasound Date Last Menstrual Period Date Ultra Sound Weeks Gestation 04/16/2016 12/20/2015 mpass 12/28/2015 07/11/2015 0 Eighteen To Twenty Week Yevgeniy Update Ultra Sound Date Fundal Height At Umbil Quickening Date Ultra Sound Latest Weeks Gestation Final Yevgeniy Confirmed By Final Yevgeniy Confirmed Date Final Yevgeniy Date Ultra Sound Latest Days Gestation 0 [email or web address] 01/04/2016 04/17/20 16 0 Pre-jasvir Flowsheet Flowsheet Date 12/20/2015 Coreas Score Blood Edema Fundus Height Fundus Units Glucose Ketones Leukocytes Nitrite Labor Signs Protein Cervic Dilation Cervic Effacement Cervic Station neg none 20 cm none negative 3+ 0cm 0% - 4 Type Weight in lbs Pre/Post Dialysis Refused 176.944691171877 BP Diastolic BP Location Tested BP Systolic BP Type 70 114 sitting Fetus Heart Rate Present A 145 Fetus Movement A Yes Comments Initial labs done. US order given. Flowsheet Date 12/25/2015 Coreas Score Blood Edema Fundus Height Fundus Units Glucose Ketones Leukocytes Nitrite Labor Signs Protein Cervic Dilation Cervic Effacement Cervic Station trace none 21 cm none small 3+ Type Weight in lbs Pre/Post Dialysis Refused 177.693477819916 BP Diastolic BP Location Tested BP Systolic BP Type 80 118 sitting Fetus Heart Rate Present A 152 Fetus Movement A Yes Comments Treated for chl and trich. P artner to be treated. To use condoms if relationship continues. Flowsheet Date 01/23/2016 Coreas Score Blood Edema Fundus Height Fundus Units Glucose Ketones Leukocytes Nitrite Labor Signs Protein Cervic Dilation Cervic Effacement Cervic Station 1+ none 26 cm none negative 3+ Type Weight in lbs Pre/Post Dialysis Refused 180.372650485423 BP Diastolic BP Location Tested BP Systolic BP Type 70 120 sitting Fetus Heart Rate Present A 152 Fetus Movement A Yes Comments 28 week lab at welcome desk agent. T o call Dr. Jackson's office for remaining OB care. Flowsheet Date 01/30/2016 Coreas Score Blood Edema Fundus Height Fundus Units Glucose Ketones Leukocytes Nitrite Labor Signs Protein Cervic Dilation Cervic Effacement Cervic Station 1+ none 27 cm none negative 3+ Type Weight in lbs Pre/Post Dialysis Refused 177.051302815073 BP Diastolic BP Location Tested BP Systolic BP Type 74 120 sitting Fetus Heart Rate Present A 148 Fetus Movement A Yes Comments PEEWEE for chlamydia, trich. Pu retic rash on mons pubis. To RTC for 28 week labs. Flowsheet Date 03/25/2016 Coreas Score Blood Edema Fundus Height Fundus Units Glucose Ketones Leukocytes Nitrite Labor Signs Protein Cervic Dilation Cervic Effacement Cervic Station 32 cm Type Weight in lbs Pre/Post Dialysis Refused 188.377408647493 BP Diastolic BP Location Tested BP Systolic BP Type 86 124 sitting Fetus Heart Rate Present A 144 Present Fetus Movement A Yes Comments Late/limited PNC. Baby #3. G BS today, cervix check next time. No GTT Flowsheet Date 04/14/2016 Coreas Score Blood Edema Fundus Height Fundus Units Glucose Ketones Leukocytes Nitrite Labor Signs Protein Cervic Dilation Cervic Effacement Cervic Station Type Weight in lbs Pre/Post Dialysis Refused [id number] BP Diastolic BP Location Tested BP Systolic BP Type 78 112 sitting Fetus Heart Rate Present Fetus Movement Comments Menstrual History Last Menstrual Date Menses Monthly On Bcp Conception Prior Menses Frequency Hcg Plus Date Menarche Onset Age 0907/11/2015 true false 28 12 Genetic Screening And Infection History Question Response Note Patient's Age Will Be 35 Yea rs Or Older At Estimated Date of Delivery false Thalassemia (Andorran, Peruvian, Mediterranean, Or Background): MCV < 80 false Neural Tube Defect (Meningom yelocele, Spina Bifida, Or Anencephaly) false Congenital Heart Defect false Down Syndrome false Phil-Sachs (eg, Adventist, Cajun, Niuean-New Zealander) f alse Armando Disease false Sickle Cell Disease Or Trait () false Hemophilia Or Other Blood Disorders false Muscular Dystrophy false Cystic Fibrosis false Coleman's Chorea false Mental Retardation/Autism false Other Inherited Genetic Or Chromosomal Disorder false Maternal Metabolic Disorder (eg, Type 1 Diabetes , PKU) false Patient Or Baby's Father Had A Child With Defects Not Listed Above false Recurrent Loss, Or A Stillbirth false Medications (including Suppl ements, Vitamins, Herbs, OTC Drugs), Illicit/Recreational Drugs, Alcohol true Clindamycin Any Other Genetic History false Live With Someone With TB Or Exposed To TB false Patient Or Partner Has History Of Genital Herpes false Rash Or Viral Illness Since Last Menstrual Perio d false History Of STD, Gonorrhea, Chlamydia, HPV, Syphi lis false Delivery Information Delivery Date Delivery Type Labor Anesthesia Weeks Gestation Incision Type Labor Labor Length Hrs Delivered By Post Complications Tubal Sterilization Discharge Date Comments 6 Nina burch [facility] 37.[address] Jackson 04/02/2016 Discharge Information Feeding Method Contraceptive Method Maternal HG B and HCT Levels Bottle Ob Episode Information Episode Created Date Number of Fetuses Patient Bloodtype Patient rh Status Prepregnancy Weight lbs Domestic Partner Domestic Partner Phone Father Name Special Education Superintendent Status 11/15/19 15 1 B Positive CLOSED Fetus Data First Name Last Name Admitted to NICU Weight (g) Sex Living Outcome Pediatric Complications Fetus ID Race Codes Race Delivery Type Jahair e Wheel er false 3713.78 45 M true Full Term 7921 4-5 Black or Afric an Ameri can Vaginal Problems Problem Notes Problem Name Start Date End Date Resolution Snomed Code Not e Urinary tract infection in [id number] Anemia [id number] Yevgeniy Calculation Initial Yevgeniy Date Initial Exam Date Initial Exam Provider Initial Ultrasound Date Last Menstrual Period Date Ultra Sound Weeks Gestation 06/06/2015 11/15/2014 08/30/2014 0 Eighteen To Twenty Week Yevgeniy Update Ultra Sound Date Fundal Height At Umbil Quickening Date Ultra Sound Latest Weeks Gestation Final Yevgeniy Confirmed By Final Yevgeniy Confirmed Date Final Yevgeniy Date Ultra Sound Latest Days Gestation 0 06/06/20 15 0 Pre-jasvir Flowsheet Flowsheet Date 11/15/2014 Coreas Score Blood Edema Fundus Height Fundus Units Glucose Ketones Leukocytes Nitrite Labor Signs Protein Cervic Dilation Cervic Effacement Cervic Station neg none none neg 0cm 0% 0 Type Weight in lbs Pre/Post Dialysis Refused 185.716212906146 BP Diastolic BP Location Tested BP Systolic BP Type 82 R arm 122 sitting Fetus Heart Rate Present Fetus Movement Comments Flowsheet Date 12/12/2014 Coreas Score Blood Edema Fundus Height Fundus Units Glucose Ketones Leukocytes Nitrite Labor Signs Protein Cervic Dilation Cervic Effacement Cervic Station neg none none negative none 3+ Type Weight in lbs Pre/Post Dialysis Refused 180.753029364957 BP Diastolic BP Location Tested BP Systolic BP Type 80 R arm 116 sitting Fetus Heart Rate Present A Present Fetus Movement A No Comments Flowsheet Date 12/28/2014 Coreas Score Blood Edema Fundus Height Fundus Units Glucose Ketones Leukocytes Nitrite Labor Signs Protein Cervic Dilation Cervic Effacement Cervic Station neg none none small 1+ Type Weight in lbs Pre/Post Dialysis Refused 182.173052747494 BP Diastolic BP Location Tested BP Systolic BP Type 62 R arm 118 sitting Fetus Heart Rate Present A 149 Present Fetus Movement A Yes Comments To rtc in 1 week. Flowsheet Date 01/15/2015 Coreas Score Blood Edema Fundus Height Fundus Units Glucose Ketones Leukocytes Nitrite Labor Signs Protein Cervic Dilation Cervic Effacement Cervic Station Type Weight in lbs Pre/Post Dialysis Refused 182.264341223178 BP Diastolic BP Location Tested BP Systolic BP Type 72 R arm 118 sitting Fetus Heart Rate Present Fetus Movement Comments Flowsheet Date 02/12/2015 Coreas Score Blood Edema Fundus Height Fundus Units Glucose Ketones Leukocytes Nitrite Labor Signs Protein Cervic Dilation Cervic Effacement Cervic Station 25 cm none Type Weight in lbs Pre/Post Dialysis Refused 187.100620842569 BP Diastolic BP Location Tested BP Systolic BP Type 71 L arm 110 sitting Fetus Heart Rate Present A 145 Present Fetus Movement A Yes Comments repeat u/s for growth and 28 week labs next visit Flowsheet Date 03/13/2015 Coreas Score Blood Edema Fundus Height Fundus Units Glucose Ketones Leukocytes Nitrite Labor Signs Protein Cervic Dilation Cervic Effacement Cervic Station 28 cm none Type Weight in lbs Pre/Post Dialysis Refused 191.183056978745 BP Diastolic BP Location Tested BP Systolic BP Type 78 118 Fetus Heart Rate Present A 155 Present Fetus Movement A Yes Comments urine cx. 28 week labs today and growth scan order given Flowsheet Date 03/27/2015 Coreas Score Blood Edema Fundus Height Fundus Units Glucose Ketones Leukocytes Nitrite Labor Signs Protein Cervic Dilation Cervic Effacement Cervic Station 31 cm none Type Weight in lbs Pre/Post Dialysis Refused 191.605443361624 BP Diastolic BP Location Tested BP Systolic BP Type 70 110 sitting Fetus Heart Rate Present A 151 Present Fetus Movement A Yes Comments rx for uti and anemia; growt h scan next visit Flowsheet Date 05/01/2015 Coreas Score Blood Edema Fundus Height Fundus Units Glucose Ketones Leukocytes Nitrite Labor Signs Protein Cervic Dilation Cervic Effacement Cervic Station 35 cm none Type Weight in lbs Pre/Post Dialysis Refused 191.998867190781 BP Diastolic BP Location Tested BP Systolic BP Type 70 108 sitting Fetus Heart Rate Present A 140 Present Fetus Movement A Yes Comments still has occasional shortne ss of breath. Has not used inhaler since discharge. was in hospital 04/08 for pyelo. Did not follow up til now; GBS/ NUSwab next visit; discussed anemia. Pt is not taking iron as directed Flowsheet Date 05/08/2015 Coreas Score Blood Edema Fundus Height Fundus Units Glucose Ketones Leukocytes Nitrite Labor Signs Protein Cervic Dilation Cervic Effacement Cervic Station 36 cm none 1cm 0% -4 Type Weight in lbs Pre/Post Dialysis Refused 194.542478987790 BP Diastolic BP Location Tested BP Systolic BP Type 78 118 sitting Fetus Heart Rate Present A 145 Present Fetus Movement A Yes Comments GBS/ nu swab done Flowsheet Date 05/22/2015 Coreas Score Blood Edema Fundus Height Fundus Units Glucose Ketones Leukocytes Nitrite Labor Signs Protein Cervic Dilation Cervic Effacement Cervic Station 36 none Type Weight in lbs Pre/Post Dialysis Refused 196.170499987370 BP Diastolic BP Location Tested BP Systolic BP Type 80 120 sitting Fetus Heart Rate Present A 147 Present Fetus Movement A Yes Comments sciatic nerve ; labor precau tions Menstrual History Last Menstrual Date Menses Monthly On Bcp Conception Prior Menses Frequency Hcg Plus Date Menarche Onset Age 1108/30/2014 Genetic Screening And Infection History Question Response Note Patient's Age Will Be 35 Years Or Older At Estim ated Date of Delivery false Thalassemia (Andorran, Peruvian, Mediterranean, Or Background): MCV < 80 false Neural Tube Defect (Meningomyelocele, Spina Bifi da, Or Anencephaly) false Congenital Heart Defect false Down Syndrome false Phil-Sachs (eg, Adventist, Cajun, Niuean-New Zealander) f alse Armando Disease false Sickle Cell Disease Or Trait () false Hemophilia Or Other Blood Disorders false Muscular Dystrophy false Cystic Fibrosis false Shania's Chorea false Mental Retardation/Autism false Other Inherited Genetic Or Chromosomal Disorder false Maternal Metabolic Disorder (eg, Type 1 Diabetes , PKU) false Patient Or Baby's Father Had A Child With Defects Not Listed Above false Recurrent Loss, Or A Stillbirth false Medications (including Suppl ements, Vitamins, Herbs, OTC Drugs), Illicit/Recreational Drugs, Alcohol true PNV Any Other Genetic History false Live With Someone With TB Or Exposed To TB false Patient Or Partner Has History Of Genital Herpes false Rash Or Viral Illness Since Last Menstrual Perio d false History Of STD, Gonorrhea, Chlamydia, HPV, Syphi lis false Other Infection History false Delivery Information Delivery Date Delivery Type Labor Anesthesia Weeks Gestation Incision Type Labor Labor Length Hrs Delivered By Post Complications Tubal Sterilization Discharge Date Comments 5 [facility] White 05/28/2015 Discharge Information Feeding Method Contraceptive Method Maternal HG B and HCT Levels Bottle Ob Episode Information Episode Created Date Number of Fetuses Patient Bloodtype Patient rh Status Prepregnancy Weight lbs Domestic Partner Domestic Partner Phone Father Name Special Education Superintendent Status 03/25/20 16 1 DELETED Yevgeniy Calculation Initial Yevgeniy Date Initial Exam Date Initial Exam Provider Initial Ultrasound Date Last Menstrual Period Date Ultra Sound Weeks Gestation 0 Eighteen To Twenty Week Yevgeniy Update Ultra Sound Date Fundal Height At Umbil Quickening Date Ultra Sound Latest Weeks Gestation Final Yevgeniy Confirmed By Final Yevgeniy Confirmed Date Final Yevgeniy Date Ultra Sound Latest Days Gestation 0 0 Menstrual History Last Menstrual Date Menses Monthly On Bcp Conception Prior Menses Frequency Hcg Plus Date Menarche Onset Age Delivery Information Delivery Date Delivery Type Labor Anesthesia Weeks Gestation Incision Type Labor Labor Length Hrs Delivered By Post Complications Tubal Sterilization Discharge Date Comments 5 [facility] 38 false 7 Discharge Information Feeding Method Contraceptive Method Maternal HG B and HCT Levels Ob Episode Information Episode Created Date Number of Fetuses Patient Bloodtype Patient rh Status Prepregnancy Weight lbs Domestic Partner Domestic Partner Phone Father Name Special Education Superintendent Status 04/14/20 16 1 DELETED Yevgeniy Calculation Initial Yevgeniy Date Initial Exam Date Initial Exam Provider Initial Ultrasound Date Last Menstrual Period Date Ultra Sound Weeks Gestation 0 Eighteen To Twenty Week Yevgeniy Update Ultra Sound Date Fundal Height At Umbil Quickening Date Ultra Sound Latest Weeks Gestation Final Yevgeniy Confirmed By Final Yevgeniy Confirmed Date Final Yevgeniy Date Ultra Sound Latest Days Gestation 0 0 Menstrual History Last Menstrual Date Menses Monthly On Bcp Conception Prior Menses Frequency Hcg Plus Date Menarche Onset Age Delivery Information Delivery Date Delivery Type Labor Anesthesia Weeks Gestation Incision Type Labor Labor Length Hrs Delivered By Post Complications Tubal Sterilization Discharge Date Comments 6 [facility] 37.4 false 5 GT Discharge Information Feeding Method Contraceptive Method Maternal HG B and HCT Levels Ob Episode Information Episode Created Date Number of Fetuses Patient Bloodtype Patient rh Status Prepregnancy Weight lbs Domestic Partner Domestic Partner Phone Father Name Special Education Superintendent Status 01/13/20 17 1 B Positive Baljeet Saldaña CLOSED Fetus Data First Name Last Name Admitted to NICU Weight (g) Sex Living Outcome Pediatric Complications Fetus ID Race Codes Race Delivery Type Elif Murillo er false 3203.49 35 F true Full Term 50868 4-5 Black or Afric an Ameri can Vaginal Problems Problem Notes Problem Name Start Date End Date Resolution Snomed Code Not e Anemia [id number] Acute cystitis [id number] Yevgeniy Calculation Initial Yevgeniy Date Initial Exam Date Initial Exam Provider Initial Ultrasound Date Last Menstrual Period Date Ultra Sound Weeks Gestation 07/10/2017 01/12/2017 mpass 01/23/2017 10/03/2016 16 Eighteen To Twenty Week Yevgeniy Update Ultra Sound Date Fundal Height At Umbil Quickening Date Ultra Sound Latest Weeks Gestation Final Yevgeniy Confirmed By Final Yevgeniy Confirmed Date Final Yevgeniy Date Ultra Sound Latest Days Gestation 0 [email or web address] 05/15/2017 07/10/20 17 0 Pre- Flowsheet Flowsheet Date 01/12/2017 Coreas Score Blood Edema Fundus Height Fundus Units Glucose Ketones Leukocytes Nitrite Labor Signs Protein Cervic Dilation Cervic Effacement Cervic Station neg none none negative trace Type Weight in lbs Pre/Post Dialysis Refused 165.461981621016 BP Diastolic BP Location Tested BP Systolic BP Type sitting Fetus Heart Rate Present Fetus Movement A No Comments Initial labs. Order for javier kellee US. Pt. wants DMPA before she leaves the hospital after delivering. Flowsheet Date 01/26/2017 Coreas Score Blood Edema Fundus Height Fundus Units Glucose Ketones Leukocytes Nitrite Labor Signs Protein Cervic Dilation Cervic Effacement Cervic Station trace none none trace neg Type Weight in lbs Pre/Post Dialysis Refused 164.36514673799 BP Diastolic BP Location Tested BP Systolic BP Type 66 114 sitting Fetus Heart Rate Present A 146 Fetus Movement A No Comments Quad screen Flowsheet Date 03/09/2017 Coreas Score Blood Edema Fundus Height Fundus Units Glucose Ketones Leukocytes Nitrite Labor Signs Protein Cervic Dilation Cervic Effacement Cervic Station 1+ none 22 cm none negative neg 0cm 0% - 4 Type Weight in lbs Pre/Post Dialysis Refused 168.435007278659 BP Diastolic BP Location Tested BP Systolic BP Type 70 122 sitting Fetus Heart Rate Present A 154 Fetus Movement A Yes Comments Has had some spotting x 2. F irst time was after intercourse. Last night spotting without intercourse. Checked today for CHL/GC. No intercourse for 1 week. 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 W ill start seeing Dr. Jackson at her next OB visit. Flowsheet Date 05/15/2017 Coreas Score Blood Edema Fundus Height Fundus Units Glucose Ketones Leukocytes Nitrite Labor Signs Protein Cervic Dilation Cervic Effacement Cervic Station neg none 31 cm none negative none 1+ Type Weight in lbs Pre/Post Dialysis Refused 175.062163872023 BP Diastolic BP Location Tested BP Systolic BP Type 68 122 sitting Fetus Heart Rate Present A 166 Present Fetus Movement A Yes Comments Patient admits to pelvic pre ssure, denies dysuria or increased frequency. She denies VB, VD, LOF or CTXs. Desires Depo-Provera prior to d/c from the hospital after delivery. B+/Ab neg, HepBsAg neg, HIV NR, RPR NR, Rubella Immune, NG/Chlamydia neg, Quad screen negative, DMS 87. RTC in 3 weeks. Flowsheet Date 06/04/2017 Coreas Score Blood Edema Fundus Height Fundus Units Glucose Ketones Leukocytes Nitrite Labor Signs Protein Cervic Dilation Cervic Effacement Cervic Station trace none 33 cm none negative none 1+ Type Weight in lbs Pre/Post Dialysis Refused 175.440291905913 BP Diastolic BP Location Tested BP Systolic BP Type 78 110 sitting Fetus Heart Rate Present A 142 Present Fetus Movement A Yes Comments Patient admits to abnormal v aginal discharge with an abnormal smell. Vaginal swab performed today. She denies VB, LOF and CTXs. Desires Depo-Provera prior to d/c from the hospital after delivery. B+/Ab neg, HepBsAg neg, HIV NR, RPR NR, Rubella Immune, NG/Chlamydia neg, Quad screen negative, DMS 87. RTC in 1 week. Flowsheet Date 06/16/2017 Coreas Score Blood Edema Fundus Height Fundus Units Glucose Ketones Leukocytes Nitrite Labor Signs Protein Cervic Dilation Cervic Effacement Cervic Station trace none 35 cm none small none 1+ Type Weight in lbs Pre/Post Dialysis Refused 178.776565140631 BP Diastolic BP Location Tested BP Systolic BP Type 70 112 sitting Fetus Heart Rate Present A 133 Present Fetus Movement A Yes Comments Patient states she is no log er taking iron tablets because she says she cannot take pills. Says she will start taking them again. Patient admits to irregular contractions. She denies VB, LOF and CTXs. Desires Depo-Provera prior to d/c from the hospital after delivery. B+/Ab neg, HepBsAg neg, HIV NR, RPR NR, Rubella Immune, NG/Chlamydia neg, Quad screen negative, DMS 87. GBS, STD panel today. RTC in 1 week. Flowsheet Date 06/23/2017 Coreas Score Blood Edema Fundus Height Fundus Units Glucose Ketones Leukocytes Nitrite Labor Signs Protein Cervic Dilation Cervic Effacement Cervic Station neg none 35 cm none trace Jamari Zelaya 1+ Type Weight in lbs Pre/Post Dialysis Refused 182.605010200250 BP Diastolic BP Location Tested BP Systolic BP Type 70 108 sitting Fetus Heart Rate Present A 136 Present Fetus Movement A Yes Comments Patient denies any new compl aints. Admits to FM and irregular contractions, denies VB, VD and LOF. RTC in 1 week. Flowsheet Date 06/30/2017 Coreas Score Blood Edema Fundus Height Fundus Units Glucose Ketones Leukocytes Nitrite Labor Signs Protein Cervic Dilation Cervic Effacement Cervic Station trace none 37 cm none negative [place] Zelaya 1+ 2cm 50% -3 Type Weight in lbs Pre/Post Dialysis Refused 182.595716427865 BP Diastolic BP Location Tested BP Systolic BP Type 66 100 sitting Fetus Heart Rate Present A 128 Present Fetus Movement A Yes Comments Patient denies any new compl aints. Admits to FM and irregular contractions, denies VB, VD and LOF. RTC in 1 week. Flowsheet Date 07/21/2017 Coreas Score Blood Edema Fundus Height Fundus Units Glucose Ketones Leukocytes Nitrite Labor Signs Protein Cervic Dilation Cervic Effacement Cervic Station Type Weight in lbs Pre/Post Dialysis Refused 167.734303577090 BP Diastolic BP Location Tested BP Systolic BP Type 78 120 sitting Fetus Heart Rate Present Fetus Movement Comments Menstrual History Last Menstrual Date Menses Monthly On Bcp Conception Prior Menses Frequency Hcg Plus Date Menarche Onset Age 1210/03/2016 true false 28 13 Genetic Screening And Infection History Question Response Note Patient's Age Will Be 35 Yea rs Or Older At Estimated Date of Delivery false Thalassemia (Andorran, Peruvian, Mediterranean, Or Background): MCV < 80 false Neural Tube Defect (Meningom yelocele, Spina Bifida, Or Anencephaly) false Congenital Heart Defect false Down Syndrome false Phil-Sachs (eg, Adventist, Cajun, Niuean-New Zealander) f alse Armando Disease false Sickle Cell Disease Or Trait () false Hemophilia Or Other Blood Disorders false Muscular Dystrophy false Cystic Fibrosis false Coleman's Chorea false Mental Retardation/Autism true Patien ts with autism Other Inherited Genetic Or Chromosomal Disorder false Maternal Metabolic Disorder (eg, Type 1 Diabetes , PKU) false Patient Or Baby's Father Had A Child With Defects Not Listed Above false Recurrent Loss, Or A Stillbirth false Medications (including Suppl ements, Vitamins, Herbs, OTC Drugs), Illicit/Recreational Drugs, Alcohol false Any Other Genetic History false Live With Someone With TB Or Exposed To TB false Patient Or Partner Has History Of Genital Herpes false Rash Or Viral Illness Since Last Menstrual Perio d false History Of STD, Gonorrhea, Chlamydia, HPV, Syphi lis true chlamydia Delivery Information Delivery Date Delivery Type Labor Anesthesia Weeks Gestation Incision Type Labor Labor Length Hrs Delivered By Post Complications Tubal Sterilization Discharge Date Comments 7 [facility] [address] Walters false 07/05/2017 De po Provera Given 7 Discharge Information Feeding Method Contraceptive Method Maternal HG B and HCT Levels Bottle Depo
[2025-03-05 16:26] VITALS: BP 146/80; PULSE 87; RESP 16; TEMP 36.6; O2SAT 100
--- NOTE | 2025-03-05 16:27 | ED.FEMALEGU ---
HPI - Female Genitourinary General Chief complaint: INS[employer]OR [employer]UGS Stated complaint: yeast inf Time Seen by Provider: 03/05/25 16:27 Source: patient and RN notes reviewed Mode of arrival: ambulatory Limitations: no limitations History of Present Illness HPI Narrative: 29-year-old female presents with concern of for vaginal itching and white discharge. She reports 3 days of symptoms. She denies any known exposure to STD but would like to be tested. She denies dysuria, frequency, urgency. She denies nausea, vomiting. Reports some lower abdominal cramping. She denies back pain, fever, aches, chills, sweats. MD elicited complaint: UTI Related Data Allergies Allergy/AdvReac Type Severity Reaction Status Date / Time Penicillins Allergy Rash Verified 03/05/25 16:23 Review of Systems Review of Systems: CONSTITUTIONAL: Denies malaise, chills, sweats, or fever. CARDIOVASCULAR: Denies chest pain, palpitations, or edema. RESPIRATORY: Denies cough or dyspnea. GASTROINTESTINAL: Denies abdominal pain, nausea, vomiting, diarrhea GENITOURINARY: Reports dysuria, frequency, urgency, suprapubic pressure. Denies flank pain or hematuria. Reports vaginal itching and white vaginal discharge SKIN: Denies rash or itching. MUSCULOSKELETAL: Denies back pain or myalgia. All systems reviewed & are unremarkable except as noted in HPI and below PMFSH Past Medical History Medical History Anxiety Preeclampsia No pertinent past medical history Surgical History Surgical History No history of previous surgery Family History Family History Mother Heart disease Social History Social History Smoking status: Never smoker Alcohol intake: current Alcohol use details: social Substance use type: does not use Living arrangements: with family Gender identity (if verbalized by the patient): Female Comments At time of signature, agree with nursing past medical, surgical, social and family history. There is no relevant family history pertinent to the presenting complaint Exam Narrative: GENERAL: Well-appearing, well-nourished, and in no acute distress. HEAD: Normocephalic. EYES: PERRLA, conjunctivae clear. NECK: Supple. No lymphadenopathy CHEST: Clear to auscultation. No respiratory distress. HEART: Regular rate and rhythm. ABDOMEN: Soft, nontender upon palpation, nondistended, normal active bowel sounds, no palpable or pulsatile masses, no guarding. No CVA tenderness SKIN: Warm, dry, no rash. NEURO: Alert and oriented x3. PSYCH: Normal mood and affect Course Course Emergency Course: Patient is aware of diagnosis, understands and agrees to treatment plan. Anticipatory guidance given. Patient agrees to follow-up as directed and is aware of reasons to seek care at the emergency department. Portions of this record may have been created with voice recognition software Level of Care: Express Care Visit Vital Signs Vital signs: Vital Signs Temperature 97.8 F 03/05/25 16:26 Pulse Rate 87 03/05/25 16:26 Respiratory Rate 16 03/05/25 16:26 Blood Pressure 146/80 H 03/05/25 16:26 Pulse Oximetry 100 03/05/25 16:26 Oxygen Delivery Room Air 03/05/25 16:26 Temperature 97.8 F 03/05/25 16:26 Pulse Rate 87 03/05/25 16:26 Respiratory Rate 16 03/05/25 16:26 Blood Pressure 146/80 H 03/05/25 16:26 Pulse Oximetry 100 03/05/25 16:26 Oxygen Delivery Room Air 03/05/25 16:26 Reviewed. MDM - Female Genitourinary MDM Narrative Medical decision making narrative: Exam findings and UA show no acute concerns or changes; patient is non-toxic appearing and is in no distress. Patient is appropriate for outpatient treatment and follow-up. Differential Diagnosis Differential diagnosis: Likely urinary tract infection and cystitis Critical Care Time Critical Care Time Critical Care Time: No Discharge Plan Discharge Clinical Impression: Vaginal itching Patient Disposition: Home Condition: Stable Instructions: Yeast Infection (ED) Additional Instructions: Your being treated for presumptive yeast infection today. You have been tested for potential gonorrhea, chlamydia, and trichomoniasis today. You will receive a phone call in 2-3 days with the results of today's testing. Any necessary treatment will be discussed at that time. It is very important that you avoid unprotected intercourse during treatment and for 7 days AFTER TREATMENT is complete and until your partner(s) have been treated. Please encourage your partner(s) to seek testing and treatment. When you have been exposed to sexually transmitted infections, it is important that you seek comprehensive testing, since we do not provide testing for all sexually transmitted infections. Some infections can have no symptoms, but cause serious health problems. Contact your health care provider or report to the emergency department if: You have genital swelling or pain, or unusual bleeding. You have joint pain, rash, swollen lymph nodes or night sweats. You are severe abdominal pain. You have a fever. Symptoms do not go away or they get worse even after treatment. You have bleeding or pain during sex. Patient Language: Guamanian Prescriptions: New fluconazole 150 mg tablet 150 mg PO Q48H 3 Days Qty: 2 0RF Rx Instructions: take one dose now, and a second dose if symptoms remain in 48 hours Follow-up/Referrals: PHYSICIAN,PATIENT SERVICES TECHNICIAN [Primary Care Provider] - Time of Disposition: 16:34
[2025-03-05 18:53] LABS: Trichomonas Vag PCR NOT DETECTED (NOT DETECTE)
[2025-03-05 19:16] LABS: Chlamydia trachomatis NOT DETECTED (NOT DETECTE); Neisseria gonorrhoeae PCR NOT DETECTED (NOT DETECTE)
== END 2025-03-05 16:41 | disposition home or self-care (01) ==
PROVIDERS: Emergency Provider Nurse Practitioner
DX: N89.8 Other specified noninflammatory disorders of vagina (principal); Z11.3 Encounter for screening for infections with a predominantly sexual mode of transmission
CPT/HCPCS: 87491; 87591; 87661; 99213; G0463

== ENCOUNTER 2025-07-17 18:58 | Emergency (ER) | payer OTHER, SELFPAY ==
[2025-07-17 19:02] VITALS: BP 140/80; PULSE 81; RESP 20; TEMP 36.5; O2SAT 100
--- OUTSIDE RECORDS SUMMARY | 2025-07-17 19:02 | XMS_ITS | Clinical Summary ---
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 Residential Remodeling Subcontractor Name Role Phone Provider, None Primary Care [...] Date Anemia during in third trimester 05/25 Encounters Date Type Department Care Team Description 05/19/2025 9:08 PM CDT - 05/20/2025 12:36 AM CDT [facility] [address] [place] [address] Chito Cali MD Urinary tract infection Discharge Disposition: Discharged to home or Selfcare 05/19/2025 Travel from Last 3 Months Family History Medical History Relation Name Comments [...] Sign Reading Time Taken Comments Blood Pressure 137/80 05/20/2025 12:15 AM CDT Pulse 82 05/20/2025 12:15 AM CDT Temperature 37.1 C (98.8 F) 05/19/2025 9:13 PM CDT Respiratory Rate 18 05/20/2025 12:15 AM CDT Oxygen Saturation 100% 05/20/2025 12:15 AM CDT Inhaled Oxygen Concentration - - Weight 102.5 kg (226 lb) 05/19/2025 9:13 PM CDT Height 170.2 cm (5' 7) 05/19/2025 9:13 PM CDT Body Mass Index 35.4 05/19/2025 9:13 PM CDT Plan of Treatment Health Maintenance Due Date Last Done Comments Hepatitis C Virus (HCV) Screening 1996 Human Papillomavirus (HPV) Immunization (3 - 3-dose series) 03/16/2013 12/22/2012, 06/02/2012 Pap Smear 2017 Influenza Immunization (#1) 2025 09/15/2019 SARS-COV-2 Immunization ( season) 2025 Respiratory Syncytial Virus (RSV) Immunization (Adult) (1 - 1-dose 75+ series) 2071 Hepatitis B Immunization Completed 997, 1996, 1996 Meningococcal Immunization (ACWY) Completed 12/22/2012, 06/02/2012 DTaP/Tdap/Td Immunization Discontinued 2022, 01/31/2020, 06/04/2017, Additional history exists TdaP Immunization Completed 05/11/2023, , 06/04/2017, Additional history exists Pneumococcal Immunization Combined Aged Out No longer eligible based on patient's age to complete this topic Rotavirus Immunization Aged Out No lo nger eligible based on patient's age to complete this topic Procedures Procedure Name Priority Date/Time Associated Diagnosis Comments XR CHEST SINGLE VIEW PORTABLE STAT 05/19/2025 11:22 PM CDT CBC WITH AUTO DIFFERENTIAL STAT 05/19/2025 10:50 PM CDT TROPONIN I, HIGH SENSITIVITY (HSTRP) STAT 05/19/2025 10:50 PM CDT URINALYSIS REFLEX IF INDICATED BY ABNORMAL RESULTS STAT 05/19/2025 10:50 PM CDT CMP (COMPREHENSIVE METABOLIC PANEL) STAT 05/19/2025 10:50 PM CDT COMPLETE BLOOD COUNT (CBC) WITH DIFF STAT 05/19/2025 10:50 PM CDT CULTURE, URINE STAT 05/19/2025 10:50 PM CDT EKG 12 LEAD STAT 05/19/2025 9:31 PM CDT POCT URINE HCG () STAT 05/19/2025 10:11 AM CDT EKG SCAN 05/19/2025 12:00 AM CDT from Last 3 Months Results * XR CHEST SINGLE VIEW PORTABLE (05/19/2025 11:22 PM CDT) Anatomical Region Laterality Modality Chest N/A Digital Radiogra phy 05/19/2025 11:3 4 PM CDT Impressions 05/19/2025 11:37 PM CDT IMPRESSION: No acute cardiopulmonary abnormality. Narrative 05/19/2025 11:37 PM CDT EXAM DESCRIPTION: XR CHEST SINGLE VIEW PORTABLE REASON FOR STUDY: Pain TECHNIQUE: Frontal radiographic view(s) of the chest. COMPARISON: 04/07/2024 FINDINGS: LUNGS: The lungs are clear. No focal pulmonary consolidation, pleural effusion, or pneumothorax. HEART/MEDIASTINUM: Cardiac silhouette normal in size. Mediastinal and hilar contours appear normal. LINES/TUBES: None. BONES: No acute osseous abnormality. THIS IS AN ELECTRONICALLY VERIFIED FINAL REPORT 05/19/2025 11:34 PM - Electronically signed by Hossein Dash M.D. AT: AT Report ID: [id number] Reading Location: [id number] Procedure Note Hossein Dash MD - 05/19/2025 EXAM DESCRIPTION: XR CHEST SINGLE VIEW PORTABLE REASON FOR STUDY: Pain TECHNIQUE: Frontal radiographic view(s) of the chest. COMPARISON: 04/07/2024 FINDINGS: LUNGS: The lungs are clear. No focal pulmonary consolidation, pleural effusion, or pneumothorax. HEART/MEDIASTINUM: Cardiac silhouette normal in size. Mediastinal and hilar contours appear normal. LINES/TUBES: None. BONES: No acute osseous abnormality. THIS IS AN ELECTRONICALLY VERIFIED FINAL REPORT 05/19/2025 11:34 PM - Electronically signed by Hossein Dash M.D. AT: AT Report ID: [id number] Reading Location: [id number] IMPRESSION: No acute cardiopulmonary abnormality. Chito Cali MD [facility] DIAGNOSTIC ORDERABLES Final Result * (ABNORMAL) URINALYSIS REFLEX IF INDICATED BY ABNORMAL RESULTS (05/19/2025 10:50 PM CDT) SPECIFIC GRAVITY 1.020 1.003 - 1.030 05/19/2025 11:22 PM CDT [facility] URINE PH 6.0 5.0 - 9.0 05/19/2025 11:22 PM CDT [facility] WBC ESTERASE 500 /uL(A) Negative 05/19/2025 11:22 PM CDT [facility] NITRITE Negative Negative 05/19/2025 11:22 PM CDT [facility] PROTEIN, RANDOM URINE 15 mg/dL(A) Negative 05/19/2025 11:22 PM CDT [facility] URINE GLUCOSE, QUAL Negative Negative 05/19/2025 11:22 PM CDT [facility] URINE KETONES Negative Negative 05/19/2025 11:22 PM CDT [facility] UROBILINOGEN 1 mg/dL(A) Normal mg/dL 05/19/2025 11:22 PM CDT [facility] URINE BLOOD 50 /uL(A) Negative sarah/ul 05/19/2025 11:22 PM CDT [facility] URINALYSIS COLOR Dark Yellow 025 11:22 PM CDT [facility] URINALYSIS CLARITY Slightly Cloudy 05/19/2025 11:22 PM CDT [facility] WBC (Urine) 51-150(A) Negative, 0-5 /hpf 05/19/2025 11:22 PM CDT [facility] URINE RBC'S 21-50(A) Negative, 0-2 /hpf 05/19/2025 11:22 PM CDT [facility] EPITHELIAL CELLS Moderate amount /lpf 05/19/2025 11:22 PM CDT [facility] BACTERIA, URINE Moderate(A) Negative /hpf 05/19/2025 11:22 PM CDT [facility] URINE MUCOUS Few 05/19/2025 11:22 PM CDT [facility] Urine URINE SPECIMEN OBTAINED BY CLEAN CATCH PROCEDURE / Unknown Non-Phlebotomy Collection / Unknown 05/19/2025 10:50 PM CDT 05/19/2025 10:55 PM CDT us Chito Cali MD URINE ORDERABLES Final Re sult [facility] [address] [place] [address] * TROPONIN I, HIGH SENSITIVITY (HSTRP) (05/19/2025 10:50 PM CDT) [facility] TROPONIN I, HIGH SENSITIVITY- [place] <3 <=14 ng/L 05/19/2025 11:33 PM CDT [facility] Comment: High-sensitivity troponin I results are reported in ng/L making the result appear to be 1,000 times higher than the contemporary troponin I value which is reported in ng/ml. Results from [place]. Blood Venipuncture / Unknown 05/19/2025 10:50 PM CDT 05/19/2025 10:55 PM CDT us Chito Cali MD CHEMISTRY ORDERABLES Zoya valentine Result [facility] [address] [place] [address] * (ABNORMAL) CBC with Auto Differential (05/19/2025 10:50 PM CDT) [facility] WBC 6.17 4.00 - 12.00 10(3)/mcL 05/19/2025 10:59 PM CDT [facility] RBC 4.56 3.80 - 5.30 10(6)/mcL 05/19/2025 10:[address] [facility] HEMOGLOBIN (HGB) 10.8(L) 12.0 - 15.8 g/dL 05/19/2025 10:[address] [facility] HEMATOCRIT (HCT) 35.3(L) 36.0 - 47.0 % 05/19/2025 10:[address] [facility] MCV 77.4(L) 82.0 - 96.0 fL 05/19/2025 10:[address] [facility] MCH 23.7(L) 26.0 - 34.0 pg 05/19/2025 10:[address] [facility] MCHC 30.6(L) 31.0 - 36.0 g/dL 05/19/2025 10:[address] [facility] PLATELET COUNT 411 140 - 440 10(3)/mcL 05/19/2025 10:59 PM CDT [facility] RDW 14.8 11.8 - 15.5 % 05/19/2025 10:59 PM CDT [facility] MPV 9.3(L) 9.7 - 12.4 fL 05/19/2025 10:59 PM CDT [facility] NEUTROPHILS 54.7 47.0 - 73.0 % 05/19/2025 10:59 PM CDT [facility] LYMPHOCYTES 31.4 18.0 - 42.0 % 05/19/2025 10:59 PM CDT [facility] MONOCYTES 12.0 4.0 - 12.0 % 05/19/2025 10:59 PM CDT [facility] EOSINOPHILS 1.5 0.0 - 5.0 % 05/19/2025 10:59 PM CDT [facility] BASOPHILS 0.2 0.0 - 1.0 % 05/19/2025 10:59 PM CDT [facility] IMMATURE GRANULOCYTE 0.2 0.0 - 0.4 % 05/19/2025 10:59 PM CDT [facility] Comment:Immature Granulocyte s includes Metamyelocytes, Myelocytes, and Promyelocytes. ABSOLUTE NEUTROPHILS 3.38 1.60 - 7.70 10(3)/[facility] 05/19/2025 10:59 PM CDT [facility] ABSOLUTE LYMPHOCYTES 1.94 1.30 - 3.20 10(3)/[facility] 05/19/2025 10:59 PM CDT [facility] ABSOLUTE MONOCYTES 0.74 0.20 - 1.00 10(3)/mcL 05/19/2025 10:59 PM CDT [facility] ABSOLUTE EOSINOPHIL 0.09 0.00 - 0.40 10(3)/[facility] 05/19/2025 10:59 PM CDT [facility] ABSOLUTE BASOPHILS 0.01 0.00 - 0.10 10(3)/[facility] 05/19/2025 10:59 PM CDT [facility] ABSOLUTE IMMATURE GRANULOCYTE 0.01 0.00 - 0.03 10 (3) mcL. 05/19/2025 10:59 PM CDT [facility] NRBC PER 100 WBC 0 05/19/20 10:59 PM CDT [facility] Blood Venipuncture / Unknown 05/19/2025 10:50 PM CDT 05/19/2025 10:55 PM CDT Chito Cali MD HEMATOLOGY ORDERABLES Fin al Result [facility] [address] [place] [address] * Culture, Urine (05/19/2025 10:50 PM CDT) CULTURE RESULTS Mixed Growth of One or More Distal Urethral Contaminants 05/21/2025 12:21 PM CDT [facility] Urine URINE SPECIMEN OBTAINED BY CLEAN CATCH PROCEDURE / Unknown Non-Phlebotomy Collection / Unknown 05/19/2025 10:50 PM CDT 05/19/2025 10:55 PM CDT Chito Cail MD MICROBIOLOGY - GENERAL OR DERABLES Final Result Performing Organization Address City/[facility]/ZIP Co de Phone Number [facility] [address] [place] [address], * (ABNORMAL) CMP (Comprehensive Metabolic Panel) (05/19/2025 10:50 PM CDT) SODIUM 141 136 - 145 mmol/L 05/19/2025 11:32 PM CDT [facility] POTASSIUM 3.7 3.5 - 5.1 mmol/L 05/19/2025 11:32 PM CDT [facility] CHLORIDE 109(H) 98 - 107 mmol/L 05/19/2025 11:32 PM CDT [facility] CO2, VENOUS 23 22 - 30 mmol/L 05/19/2025 11:[address] [facility] ANION GAP 12.7 <18.0 mmol/L 05/19/2025 11:[address] [facility] GLUCOSE 123(H) 70 - 99 mg/dL 05/19/2025 11:[address] [facility] BUN 11 5 - 18 mg/dL 05/19/2025 11:[address] [facility] CREATININE, BLOOD 0.74 0.60 - 1.00 mg/dL 05/19/2025 11:[address] [facility] BUN/CREATININE RATIO 15 12 - 20 ratio 05/19/2025 11:[address] [facility] TOTAL PROTEIN 8.0 6.0 - 8.0 g/dL 05/19/2025 11:[address] [facility] ALBUMIN 4.2 3.5 - 5.0 g/dL 05/19/2025 11:[address] [facility] A/G RATIO 1.1 1.0 - 2.2 05/19/2025 11:[address] [facility] CALCIUM 9.1 8.7 - 10.5 mg/dL 05/19/2025 11:[address] [facility] T BILI 0.3 0.2 - 1.2 mg/dL 05/19/2025 11:[address] [facility] SGOT (AST) 13 <43 U/L 05/19/2025 11:[address] [facility] SGPT (ALT) 8 <56 U/L 05/19/2025 11:[address] [facility] ALKALINE PHOSPHATASE 52 40 - 150 U/L 05/19/2025 11:[address] [facility] GFR, ESTIMATED >60 >=60 05/19/2025 11:32 PM [facility] Comment: Creatinine Clearance is the preferred criteria for selecting drug dose adjustments in renally impaired patients. The GFR is provided as additional pertinent clinical information. GFR is reported in mL/min/1.73 sq m. Calculation based on the Chronic Kidney Disease Epidemiology Collaboration (CKD- EPI) equation refit without adjustment for race. GFR, EST. >60 >=60 025 11:32 PM CDT [facility] GFR, EST. NONAFRICAN >60 >=60 05/19/2025 11:32 PM CDT [facility] Blood Venipuncture / Unknown 05/19/2025 10:50 PM CDT 05/19/2025 10:55 PM CDT us Chito Cali MD CHEMISTRY ORDERABLES Zoya l Result [facility] [address] [place] [address] * EKG 12 LEAD (05/19/2025 9:31 PM CDT) Ventricular Rate 82 BPM EXTERNAL EKG Atrial Rate 82 BPM EXTERNAL EKG P-R Interval 120 ms EXTERNAL EKG QRS Duration 84 ms EXTERNAL EKG Q-T Duration 376 ms EXTERNAL EKG QTC CALCULATION 439 ms EXTERNAL EKG P Mouthcard 26 degrees EXTERNAL EKG R Mouthcard 36 degrees EXTERNAL EKG T Mouthcard 41 degrees EXTERNAL EKG 05/19/2025 9:31 PM CDT Impressions EXTERNAL EKG - 05/22/2025 8:05 AM CDT Normal sinus rhythm Normal ECG When compared with ECG of 07-APR-2024 19:07, Minimal criteria for Anterior infarct are no longer present Confirmed by Edil Yu ([id number]) on 05/22/2025 8:05:24 AM Narrative Procedure Note Edil Yu MD PhD - 05/22/2025 IMPRESSION: Normal sinus rhythm Normal ECG When compared with ECG of 07-APR-2024 19:07, Minimal criteria for Anterior infarct are no longer present Confirmed by Edil Yu ([id number]) on 05/22/2025 8:05:24 AM us Chito Cali MD IMG ECG ORDERABLES Final Result EXTERNAL EKG * POCT Urine HCG () (05/19/2025 10:11 AM CDT) POC URINE Negative 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
--- NOTE | 2025-07-17 19:15 | ED.URI ---
HPI - URI/Sore Throat General Chief Complaint: Upper Respiratory Infection Stated Complaint: throat Time Seen by Provider: 07/17/25 19:00 Source: patient and RN notes reviewed Mode of arrival: ambulatory Limitations: no limitations History of Present Illness HPI Narrative: 29-year-old female presents Express Care complaining of dysphagia for the last 2 weeks. Patient denies any throat pain he reports she has been able to eat and drink without any issues but reports it feels different to swallow the normal. Patient also states he feels pressure in the back of her throat. Patient denies any pain. Patient denies any upper respiratory symptoms, fevers, eczema chills, nausea vomiting chest pain, difficulty breathing, difficulty clearing secretions, body aches, chills, or other symptoms. Patient reports she has a history of acid reflux but does not take anything for it reports having or frequent heartburn as well. Patient denies any a significant past medical history here patient tried to call her PCP but was unable to get in. Related Data Allergies Allergy/AdvReac Type Severity Reaction Status Date / Time Penicillins Allergy Rash Verified 03/05/25 16:23 Review of Systems Review of Systems: CONSTITUTIONAL: Denies fever, chills, or sweats. EYES: Denies visual changes, redness, or discharge. ENT: Denies rhinorrhea, congestion, difficulty clearing secretions, or otalgia. Positive for dysphagia. CARDIOVASCULAR: Denies chest pain, palpitations, or edema. RESPIRATORY: Denies cough or dyspnea. GASTROINTESTINAL: Denies abdominal pain, nausea, vomiting, or diarrhea. GENITOURINARY: Denies dysuria or hematuria. SKIN: Denies rash or itching. MUSCULOSKELETAL: Denies back pain, joint pain, or myalgia. NEUROLOGIC: Denies headache, numbness, or weakness. PSYCHIATRIC: Denies anxiety or depression. All other systems reviewed are negative, except as documented in HPI. [facility] Past Medical History Medical History Anxiety Preeclampsia No pertinent past medical history Surgical History Surgical History No history of previous surgery Family History Family History Mother Heart disease Social History Social History Smoking status: Never smoker Alcohol intake: current Alcohol use details: social Substance use type: does not use Living arrangements: with family Gender identity (if verbalized by the patient): Female Comments At the time of my signature, I reviewed and agree with the nursing past medical, surgical, social, and family history. There is no relevant family history pertinent to the patient complaint. Exam Narrative: GENERAL: This is a well-nourished, well-developed adult, in no apparent distress. They are non ill-appearing, nontoxic appearing. HEAD: normocephalic, atraumatic. EYES: Sclera clear/white. Conjunctiva normal. Vision is grossly intact. Extraocular movements intact EARS: External ears normal, auditory canals clear and without drainage, TMs normal without perforation. Hearing grossly intact. NOSE: External nose normal with no obvious nasal discharge, nasal turbinates without redness, no rhinorrhea. THROAT: Mucous membranes moist, posterior pharynx red and patchy without swelling. Tonsils are erythematous 2+. No exudate. Uvula midline. NECK: Neck supple, non-tender without lymphadenopathy, masses or thyromegaly. CARDIOVASCULAR: Regular rate and rhythm without murmurs, gallops, or rubs. RESPIRATORY: Clear to auscultation. Breath sounds equal bilaterally. No wheezes, rales, or rhonchi. SKIN: warm, Dry, intact with no suspicious lesions or rash, good texture and turgor. NEURO: awake, alert, and oriented to person, place and time. There were no obvious focal neurologic abnormalities. Cranial nerve 2-12 grossly intact. Facial droop. No slurred speech. No limb ataxia. No pronator drift. EXTREMITIES: No joint tenderness, effusion, or edema noted. Course Course Emergency Course: Portions of this record may have been created with voice recognition software Level of Care: Express Care Visit Vital Signs Vital signs: Vital Signs Temperature 97.7 F 07/17/25 19:02 Pulse Rate 81 07/17/25 19:02 Respiratory Rate 20 07/17/25 19:02 Blood Pressure 140/80 07/17/25 19:02 Pulse Oximetry 100 07/17/25 19:02 Oxygen Delivery Room Air 07/17/25 19:02 Temperature 97.7 F 07/17/25 19:02 Pulse Rate 81 07/17/25 19:02 Respiratory Rate 20 07/17/25 19:02 Blood Pressure 140/80 07/17/25 19:02 Pulse Oximetry 100 07/17/25 19:02 Oxygen Delivery Room Air 07/17/25 19:02 Reviewed MDM - URI/Sore Throat MDM Narrative Medical decision making narrative: Rapid strep is negative. Throat culture pending. Patient appears have tonsillitis. No obvious sign of dysphagia noted. Go ahead and treat the patient with cefdinir given exam findings at length of symptoms. Advised patient also take a daily Pepcid 20 mg the by mouth daily. Will refer patient to ENT if symptoms persist. Strict ER precautions test with patient specially if she is unable to eat or drink, did worsening dysphagia, difficulty breathing, vomiting, chest pain, fevers, or any serious concerns. Discussed physical exam findings. Advised supportive measures and signs/symptoms to go to the ER. Pt is appropriate for outpt treatment and f/u. Differential Diagnosis Differential diagnosis: Likely pharyngitis and other (Tonsillitis, dysphagia, laryngeal reflux, acid reflux) Lab Data Attestation: I reviewed the patient's lab results. Labs: Lab Results 07/17/25 Range/Units 19:14 POC Grp A Strep Screen Negative (Negative) Critical Care Time Critical Care Time Critical Care Time: No Discharge Plan Discharge Clinical Impression: Acute bacterial tonsillitis Patient Disposition: Home Condition: Stable Instructions: Antibiotic Form, Tonsillitis (ED) Additional Instructions: Your rapid strep swab was negative today at [facility]. You will be notified in a few days if the culture comes back positive for strep. Take cefdinir as directed. Take Tylenol or ibuprofen as needed for fever or pain. Follow instructions on the bottle. Rest and stay hydrated. Follow up with your PCP in 3-5 days if symptoms are not improving. Follow-up with ENT for further evaluation of her dysphagia especially with does not improve with treatment. Take [id number] Pepcid 20 mg by mouth daily for acid reflux symptoms. Go to the ER immediately if developed difficulty breathing, vomiting, unable to eat or drink, difficulty clearing your own secretions, or worsening problems swallowing Patient Language: Kinyarwanda Prescriptions: New cefdinir 250 mg/5 mL suspension for reconstitution 600 mg PO DAILY 10 Days Qty: 120 0RF Follow-up/Referrals: Austin Mathews MD [Physician, Ear, Nose, Throat] PHYSICIAN,EDUCATION RESEARCH ANALYST [Primary Care Provider, Internal Medicine] Time of Disposition: 19:30
[2025-07-17 19:24] LABS: EDSTREPNEGPOS1 Negative (Negative)
== END 2025-07-17 19:35 | disposition home or self-care (01) ==
DX: J03.90 Acute tonsillitis, unspecified (principal)
CPT/HCPCS: 87081; 87880; 99213; G0463